=== PATIENT | female | born 1960 | race Caucasian/White ===

== ENCOUNTER 2025-09-05 13:34 | Emergency (ER) | payer MEDICARE, SELFPAY ==
--- OUTSIDE RECORDS SUMMARY | 2025-07-25 13:50 | XMS_ITS | Encounter Summary ---
Author Organization [facility] Address [address] [place] [address] Care Team Providers Care Salesperson [employer]obiles Name Role Phone Yuan Rios MD Unavailable [phone] Perfecto Edge MD Primary Care Provider Unavail able Reason for Visit * ReasonCommentsCopd Exacerbation Encounter Details DateTypeDepartmentCare Team (Latest Contact Info)Wmzuppclvsm34/11/2025 1:50 PM SHEET METAL SHOP HELPER - 07/25/2025 5:06 PM SEUNEmeroland Cortes [facility] [address] [place] [address] Kenton Jones MD [facility] [address] [place], [place] [id number] COPD exacerbation (H) (Primary Dx) Discharge Disposition: Home or Self Care Social History Tobacco UseTypesPacks/DayYears UsedDateSmoking Tobacco: Never Assessed CommentsUnknownSex and Gender InformationValueDate RecordedSex Assigned at Not on fileLegal RwkNhjeip20/08/2016 11:20 AM CSTGender IdentityNot on file Sexual OrientationNot on filedocumented as of this encounter Last Filed Vital Signs Vital SignReadingTime TakenCommentsBlood Kifyqdre292/3065407/25/2025 4:58 PM SHEET METAL SHOP HELPER Vpssf73137/11/2025 4:30 PM FXUNejcutkpvvw19.8 ??C (98.2 ??F)07/25/2025 4:58 PM CSTRespiratory Emol384609/24/2024 4:58 PM CSTOxygen Yrspdrywep59%07/25/2025 4:58 PM CSTInhaled Oxygen Concentration--Epbzmo56.2 kg (209 lb 14.1 oz)07/25/2025 2:05 PM CSTHeight--Body Mass Index39.66011/20/2015 11:28 AM CSTdocumented in this encounter Functional Status * Calculated C-SSRS Risk Score (Lifetime/Recent)AnswerDate of AssessmentAuthorNo Risk Psivmiftl63/11/2025 1:57 PM Aime Reyes RN * [place] Suicide Severity Rating Scale (Screener/Recent Self-Report)Question AnswerDate of AssessmentAuthor1. Wish to be (Past 1 Month)No07/25/2025 1:57 PM Aime Reyes RN2. Non-Specific Active Suicidal Thoughts (Past 1 Month)No07/25/2025 1:57 PM Aime Reyes RN6. Suicidal Behavior (Lifetime)No07/25/2025 1:57 PM Aime Reyes RN documented as of this encounter Discharge Instructions * Attachments The following attachments cannot be sent through Care Everywhere. * COPD: Exacerbation (Belarusian) documented in this encounter Medications at Time of Discharge MedicationSigDispense QuantityRefillsLast FilledStart DateEnd Date predniSONE (DELTASONE) 20 MG tablet Take 3 tabs by mouth daily x 3 days, then 2 tabs daily x 3 days, then 1 tab daily x 3 days, then 1/2 tab daily x 3 days. 20 tablet 07/25/2025documented as of this encounter ED Notes * Kenton Jones MD - 07/25/2025 2:19 PM CST Emergency Department Note History of Present Illness Chief Complaint Copd Exacerbation HPI Jcakeline Norris is a 65 year old female with history of COPD, hypertension, hypoxia, and SIRISHA who presents for evaluation of COPD exacerbation. The patient reports that last week she switched out her portable O2 machine. Today at [employer] it stopped working as she ran out of oxygen leading to acute onset of dyspnea, so she called EMS. She notes she was somewhat short of breath before the cannister went out. She endorses wheezing. She denies any chest pain, nausea, fever, cough, leg swelling, or use of blood thinners. She had a sputum culture done two weeks ago, and was found to have a bacterial infection in her lungs. She has been taking ciprofloxacin for the infection and is at the tail end of the prescription. She is on 2L of O2 and takes prednisone 5 mg daily. 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 She has tree-in-bud opacities and mild bronchiectasis. Plan is to start levofloxacin 750 mg daily x 5 days increase prednisone to 40 mg for 5 days then go back to 5 mg. Past Medical History Medical History and Problem List COPD Allergic rhinitis Hypertension Hypoxia SIRISHA Medications Albuterol Amlodipine Budesonide-formoterol Ciprofloxacin Fluticasone Guaifenesin Montelukast Prednisone Tiotropium bromide Surgical History Cholecystectomy Physical Exam Patient Vitals for the past 24 hrs: BP Temp Temp src Pulse Resp SpO2 Weight 07/25/25 1658 (!) 177/102 98.2 ??F (36.8 ??C) Oral -- 18 95 % -- 07/25/25 1649 -- -- -- -- -- 97 % -- 07/25/25 1630 (!) 156/84 -- -- 112 -- 96 % -- 07/25/25 1615 (!) 147/125 -- -- 114 -- 97 % -- 07/25/25 1500 (!) 177/85 -- -- (!) 125 -- 95 % -- 07/25/25 1445 (!) 151/88 -- -- 118 -- 97 % -- 07/25/25 1411 -- 97.5 ??F (36.4 ??C) Oral -- -- -- -- 07/25/25 1410 (!) 190/82 -- -- (!) 130 -- 95 % -- 07/25/25 1405 -- -- -- -- -- -- 95.2 kg (209 lb 14.1 oz) 07/25/25 1400 (!) 189/114 -- -- (!) 135 -- 95 % -- 07/25/25 1356 (!) 189/114 -- -- (!) 138 24 -- -- Physical Exam HEENT: Oropharynx is moist Eyes: Conjunctiva normal Neck: Supple, no meningismus. CV: Tachycardic, regular rhythm. No murmurs, rubs or gallops. No unilateral leg swelling. 2+ radial pulses bilateral. No lower extremity edema. PULM: Mild diffuse expiratory wheezing. No respiratory distress although tachypneic. Speaks in full sentences. No rales or rhonci. No stridor. ABD: Soft, non-tender, non-distended. No rebound, guarding or rigidity. MSK: No gross deformity to all four extremities. LYMPH: No cervical lymphadenopathy. NEURO: Alert Speech is clear Good muscle tone Skin: Warm, dry and intact. Psych: Mood is good and affect is appropriate. Diagnostics Lab Results Labs Ordered and Resulted from Time of ED Arrival to Time of ED Departure BASIC METABOLIC PANEL (LIMITED OCCURRENCES) - Abnormal Result Value Sodium 138 Potassium 4.5 Chloride 102 Carbon Dioxide (CO2) 25 Anion Gap 11 Urea Nitrogen 13.2 Creatinine 0.76 GFR Estimate 85 Calcium 9.4 Glucose 149 (*) BLOOD GAS VENOUS - Abnormal pH Venous 7.35 pCO2 Venous 52 (*) pO2 Venous 65 (*) Bicarbonate Venous 29 (*) Base Excess/Deficit Venous 1.9 FIO2 2 Oxyhemoglobin Venous 92 (*) O2 Sat, Venous 93.0 (*) CBC WITH PLATELETS AND DIFFERENTIAL - Abnormal WBC Count 11.49 (*) RBC Count 5.13 Hemoglobin 14.9 Hematocrit 46.7 MCV 91.0 MCH 29.0 MCHC 31.9 RDW 15.3 (*) Platelet Count 308 % Neutrophils 90.8 % Lymphocytes 3.3 % Monocytes 4.6 % Eosinophils 0.0 % Basophils 0.3 % Immature Granulocytes 1.0 NRBCs per 100 WBC 0.0 Absolute Neutrophils 10.43 (*) Absolute Lymphocytes 0.38 (*) Absolute Monocytes 0.53 Absolute Eosinophils <0.03 Absolute Basophils 0.03 Absolute Immature Granulocytes 0.12 Absolute NRBCs <0.03 ISTAT GASES LACTATE VENOUS POCT - Abnormal Lactic Acid POCT 1.9 Bicarbonate Venous POCT 29 (*) O2 Sat, Venous POCT 77 (*) pCO2 Venous POCT 49 pH Venous POCT 7.38 pO2 Venous POCT 43 INFLUENZA A/B, RSV AND SARS-COV2 PCR - Normal Influenza A PCR Negative Influenza B PCR Negative RSV PCR Negative SARS CoV2 PCR Negative Imaging Chest XR, PA & LAT Final Result IMPRESSION: Cardiac silhouette is at the upper limit of normal in size given portable technique. Upper lobe predominant oligemia, suggestive of emphysema. Possible small bilateral pleural effusions with associated compressive atelectasis. No definite airspace consolidation or pneumothorax. No acute bony abnormality. EKG ECG taken at 1402, ECG read at 1405 by Kenton Jones MD Sinus tachycardia Nonspecific ST abnormality No prior ECG Rate [address] interval 112 ms. QRS duration 88 ms. QT/QTc 316/468 ms. P-R-T axes 68 59 51. Independent Interpretation CXR: No pneumothorax or infiltrate. ED Course Medications Administered Medications methylPREDNISolone Na Suc (solu-MEDROL) injection 125 mg (125 mg Intravenous $Given 07/25/25 1427) ipratropium - albuterol 0.5 mg/2.5 mg (3mg)/3 mL (DUONEB) neb solution 6 mL (6 mLs Nebulization $Given 07/25/25 1427) Procedures Procedures Discussion of Management None ED Course ED Course as of 07/26/25 0823 ThuJul 25, 2025 141 I obtained history and examined the patient as noted above. Upon repeat examination respiratory rate 16 and trace minimal wheezing Additional Documentation None Medical Decision Making / Diagnosis [facility] Diagnoses: None MIPS None MDM Jackeline Norris is a 65 year old female with severe COPD on 2 L home O2 presents with shortnessof breath that occurred after running out of her home oxygen tank while at [employer]. She has evidence of acute bronchospasm that was responsive to DuoNebs and Solu-Medrol. No evidence of associated pneumonia. Basic laboratory studies are unrevealing. On reexamination wheezing is much improved although still present. She is not hypoxic on her baseline 2 L. I recommended admission for COPD exacerbation. Patient is declining and would like to discharge home. She is here with her daughter who is also comfortable with patient being discharged home. She will be placed on a prednisone taper backto her baseline dose of 5 mg. She is finishing a course of antibiotics that was given to her by herprimary clinical informatics educator thus no additional antibiotics ordered. Close follow-up with PCP and return to ED for symptoms. Disposition The patient was discharged. Diagnosis ICD-10-CM 1. COPD exacerbation (H) J44.1 Discharge Medications Discharge Medication List as of 07/25/2025 4:56 PM START taking these medications Details predniSONE (DELTASONE) 20 MG tablet Take 3 tabs by mouth daily x 3 days, then 2 tabs daily x 3 days, then 1 tab daily x 3 days, then 1/2 tab daily x 3 days., Disp-20 tablet, R-0, E-Prescribe Scribe Disclosure: IAlfredo, am serving as a scribe at 2:19 PM on 07/25/2025 to document services personally performed by Kenton Jones MD based on my observations and the provider's statements to me. Kenton Jones MD 07/26/25 0825 T METAL SHOP HELPER * Aime Reyes RN - 07/25/2025 2:08 PM CST Pt brought in by ambulance from [facility] with a COPD exacerbation. Pt's oxygen machine stopped working and pt started having trouble breathing subsequently. Pt was tripoding and using pursed lip breathing when EMS arrived. EMS gave 1 duo neb. Pt was on non rebreather mask at 10L and then decreased to 2L when her oxygen saturation increased. Pt currently on 1.5LNC. Pt was hypertensive when EMSarrived with systolic in the 200's. BP has improved since arriving to the ED. Pt is currently on keflex for a lung infection. ABC intact. Family at bedside. T METAL SHOP HELPER T METAL SHOP HELPER * Kevin Colindres RN - 07/25/2025 1:50 PM CST Bed: ED03 Expected date: Expected time: Means of arrival: Comments: BV6 T METAL SHOP HELPER documented in this encounter Plan of Treatment Not on file documented as of this encounter Procedures Procedure NamePriorityDate/TimeAssociated DiagnosisCommentsXR CHEST 2 VIEWSSTAT 07/25/2025 3:01 PM SHEET METAL SHOP HELPER ISTAT GASES LACTATE VENOUS DPADTCNS63/11/2025 2:21 PM SHEET METAL SHOP HELPER INFLUENZA A/B, RSV AND SARS-COV2 SPPARBZ61/11/2025 2:04 PM SHEET METAL SHOP HELPER EKG 12-LEAD, TRACING ASLVTNPO92/11/2025 2:02 PM SHEET METAL SHOP HELPER EXTRA HEPARINIZED XLOSGDMJGWN27/11/2025 1:59 PM SHEET METAL SHOP HELPER EXTRA MRJZXYFB16/11/2025 1:59 PM SHEET METAL SHOP HELPER EXTRA BLOOD CULTURE AWBMAUNOBH34/11/2025 1:59 PM SHEET METAL SHOP HELPER EXTRA PURPLE TOP PEJBVKVW80/11/2025 1:59 PM SHEET METAL SHOP HELPER EXTRA GREEN TOP (LITHIUM HEPARIN) NETXXOBL84/11/2025 1:59 PM SHEET METAL SHOP HELPER EXTRA RED TOP PQWHAARP26/11/2025 1:59 PM SHEET METAL SHOP HELPER EXTRA BLUE TOP AXDQEAYP34/11/2025 1:59 PM SHEET METAL SHOP HELPER CBC WITH PLATELETS AND HZMRRQLTCOUJSVTL94/11/2025 1:59 PM SHEET METAL SHOP HELPER CBC WITH PLATELETS AND DIFFERENTIAL (LIMITED OCCURRENCES)STAT109/24/2024 1:59 PM SHEET METAL SHOP HELPER BASIC METABOLIC PANEL (LIMITED OCCURRENCES)STAT109/24/2024 1:59 PM SHEET METAL SHOP HELPER BLOOD GAS GEITDHIEBB45/11/2025 1:59 PM SHEET METAL SHOP HELPER documented in this encounter Results * Chest XR, PA & LAT (07/25/2025 3:01 PM SHEET METAL SHOP HELPER)Anatomical RegionLateralityModality ChestDigital RadiographySpecimen (Source)Anatomical Location / Laterality Collection Method / VolumeCollection TimeReceived Time07/25/2025 3:01 PM SHEET METAL SHOP HELPER Impressions 07/25/2025 3:04 PM SHEET METAL SHOP HELPER IMPRESSION: Cardiac silhouette is at the upper limit of normal in size given portable technique. Upper lobe predominant oligemia, suggestive of emphysema. Possible small bilateral pleural effusions with associated compressive atelectasis. No definite airspace consolidation or pneumothorax. No acute bony abnormality. Narrative 07/25/2025 3:04 PM SHEET METAL SHOP HELPER EXAM: XR CHEST 2 VIEWS LOCATION: [facility] DATE: 07/25/2025 INDICATION: Dyspnea, hx of COPD COMPARISON: None. Procedure Note Oumar Nicholas MD - 07/25/2025 EXAM: XR CHEST 2 VIEWS LOCATION: [facility] DATE: 07/25/2025 INDICATION: Dyspnea, hx of COPD COMPARISON: None. IMPRESSION: Cardiac silhouette is at the upper limit of normal in sizegiven portable technique. Upper lobe predominant oligemia, suggestive ofemphysema. Possible small bilateral pleural effusions with associatedcompressive atelectasis. No definite airspace consolidation or pneumothorax. No acute bony abnormality. Authorizing ProviderResult TypeResult StatusJeremines Jones MDIMTony DIAGNOSTIC IMAGING ORDERABLESFinal Result * (ABNORMAL) iStat Gases (lactate) venous, POCT (07/25/2025 2:21 PM SHEET METAL SHOP HELPER) ComponentValueRef RangeTest MethodAnalysis TimePerformed AtPathologist SignatureLactic Acid POCT1.90.7 - 2.0 mmol/L109/24/2024 2:23 PM [facility] LABORATORY POCBicarbonate Venous POCT29(H)21 - 28 mmol/L109/24/2024 2:23 PM SHEET METAL SHOP HELPER LABORATORY POCO2 Sat, Venous POCT77(H)70 - 75 %07/25/2025 2:23 PM [facility] LAB[facility] POCpCO2 Venous NZJH5973 - 50 mm Hg07/25/2025 2:23 PM [facility] LABORATORY POCpH Venous POCT7.387.32 - 7.4311 2:[address] [facility] POCpO2 Venous BZIW2850 - 47 mm Hg07/25/2025 2:[address] [facility] POC Specimen (Source)Anatomical Location / LateralityCollection Method / Volume Collection TimeReceived TimeBlood, venousBLOOD SPECIMEN / Wsibmmn4907/25/2025 2:21 PM CST07/25/2025 2:23 PM SHEET METAL SHOP HELPER Narrative Authorizing ProviderResult TypeResult StatusJeremines PEREZ POCTFinal ResultPerforming OrganizationAddressCity/State/ZIP CodePhone Number LABORATORY POC [facility] [address] [facility] (1st floor, no room number) [place] [address], [facility] * Influenza A/B, RSV and SARS-CoV2 PCR (COVID-19) Nose (07/25/2025 2:04 PM SHEET METAL SHOP HELPER) ComponentValueRef RangeTest MethodAnalysis TimePerformed AtPathologist SignatureInfluenza A CKVJvrmkomqCorrlcjk59/11/2025 2:50 PM [facility]ST LABORATORY Influenza B CXJVwskavcyMbolqysg50/11/2025 2:[address] [facility] LABORATORYRSV PCR CfuuhfjxWpvkpcmx46/11/2025 2:[address] [facility] LABORATORYSARS CoV2 PCRNegative Uaokcgzk79/11/2025 2:[address] [facility] LABORATORYComment:NEGATIVE: SARS-CoV-2 (COVID-19) RNA not detected, presumed negative.Specimen (Source)Anatomical Location / LateralityCollection Method / VolumeCollection TimeReceived Time SwabNASAL STRUCTURE / UnknownNon-blood Collection / Lygvsoi6307/25/2025 2:04 PM CST07/25/2025 2:08 PM SHEET METAL SHOP HELPER Narrative LABORATORY - 07/25/2025 2:50 PM SHEET METAL SHOP HELPER Testing was performed using the Xpert Xpress CoV2/Flu/RSV Assay on the [employer] GeneXpert Instrument. This test should be ordered for the detection of SARS- CoV2, influenza, and RSV viruses in individuals with signs and symptoms of respiratory tract infection. This test is for in vitro diagnostic use under the [place] FDA for laboratories certified under CLIA to perform high or moderate complexity testing. This test has been [place] FDA cleared. A negative result does not rule out the presence of PCR inhibitors in the specimen or target RNA in concentration below the limit of detection for the assay. If only one viral target is positive but coinfection with multiple targets is suspected, the sample should be re-tested with another FDA cleared, approved, or authorized test, if coninfection would change clinical management. This test was validated by the [facility]. These laboratories are certified under the Clinical Laboratory Improvement Amendments of 1988 (CLIA-88) as qualified to perfom high complexity laboratory testing. Authorizing ProviderResult TypeResult Mimi DUNCAN - MICRO GENERAL ORDERABLESFinal ResultPerforming OrganizationAddressCity/State/ZIP Code Phone Number [facility] [address] Lab (1st floor, no room number) [place] [address], [facility] * EKG 12-lead, tracing only (07/25/2025 2:02 PM SHEET METAL SHOP HELPER)ComponentValueRef RangeTest MethodAnalysis TimePerformed AtPathologist SignatureSystolic Blood Pressure mmHgRADIOLOGY RESULTSDiastolic Blood PressuremmHgRADIOLOGY RESULTSVentricular Gsiz464VYVWRQRZRAWT RESULTSAtrial Pava789ILJGYIROBIPN RESULTSPR Mqqlyrud026vk RADIOLOGY RESULTSQRS Dnenfspm67cjLHRZKJQNW PBBBGOXKI662mnWRDEBFICI RESULTSQTc 468msRADIOLOGY RESULTSP Edvk66xuuoxcpAHXWYOXYC RESULTSR TRPV02coyvkywOGNAPNGEH RESULTST Hgqh49ctxawugNRSLEAVJE RESULTSInterpretation ECGSinus tachycardia Nonspecific ST abnormality Abnormal ECG No previous ECGs available Unconfirmed report - interpretation of this ECG is computer generated - see medical record for final interpretation Confirmed by - EMERGENCY ROOM, PHYSICIAN ([id number]), editor & co founder PAM KIRBY ([id number]) on 07/26/2025 6:40:34 AM RADIOLOGY RESULTSSpecimen (Source)Anatomical Location / LateralityCollection Method / VolumeCollection TimeReceived Time07/25/2025 2:02 PM CST07/26/2025 6:40 AM SHEET METAL SHOP HELPER Narrative Authorizing ProviderResult TypeResult Mimi HOBBSG ORDERABLES Edited Result - FinalPerforming OrganizationAddressCity/State/ZIP CodePhone Number RADIOLOGY RESULTS * (ABNORMAL) CBC with platelets and differential (07/25/2025 1:59 PM SHEET METAL SHOP HELPER) ComponentValueRef RangeTest MethodAnalysis TimePerformed AtPathologist SignatureWBC Count11.49(H)4.00 - 11.00 10e3/uL07/25/2025 2:[address] [facility] LABORATORYRBC Count5.133.80 - 5.20 10e6/uL07/25/2025 2:[address] [facility] Lehnrmdtxh69.911.7 - 15.7 g/dL07/25/2025 2:[address] [facility] LABORATORYHematocrit 46.735.0 - 47.0 %07/25/2025 2:[address] [facility] APBWKWHAPZDUD75.078.0 - 100.0 fL 07/25/2025 2:[address] [facility] OMPYUSJJDDJVK70.026.5 - 33.0 pg07/25/2025 2:24 PM [facility] XNREZRHQOHDIUG00.931.5 - 36.5 g/dL07/25/2025 2:[address] [facility] LABORATORYRDW 15.3(H)10.0 - 15.0 %07/25/2025 2:[address] [facility] LABORATORYPlatelet Jtfwl891153 - 450 e3/uL07/25/2025 2:[address] [facility]% Fdcwuovjdtp01.8%07/25/2025 2:[address] [facility]% Lymphocytes3.3%07/25/2025 2:[address] [facility]% Monocytes4.6%07/25/2025 2:[address] [facility]% Eosinophils0.0%07/25/2025 2:[address] [facility]% Basophils0.3%07/25/2025 2:[address] [facility]% Immature Granulocytes1.0%07/25/2025 2:[address] [facility] LABORATORYNRBCs per 100 WBC 0.0<1.0 /6721407/25/2025 2:[address] [facility] LABORATORYAbsolute Rybnrqlzppq69.43(H) 1.60 - 8.30 10e3/uL07/25/2025 2:[address] [facility] LABORATORYAbsolute Lymphocytes0.38 (L)0.80 - 5.30 10e3/uL07/25/2025 2:[address] [facility] LABORATORYAbsolute Monocytes 0.530.00 - 1.30 10e3/uL07/25/2025 2:[address] [facility] LABORATORYAbsolute Eosinophils <0.030.00 - 0.70 10e3/uL07/25/2025 2:24 PM [facility] LABORATORYAbsolute Basophils 0.030.00 - 0.20 10e3/uL07/25/2025 2:[address] [facility] LABORATORYAbsolute Immature Granulocytes0.12<=0.40 10e3/uL07/25/2025 2:[address] [facility] LABORATORYAbsolute NRBCs<0.0310e3/uL07/25/2025 2:[address] [facility] LABORATORYSpecimen (Source) Anatomical Location / LateralityCollection Method / VolumeCollection Time Received TimeBloodBLOOD SPECIMEN / UnknownVenipuncture / Bahjxti5707/25/2025 1:59 PM CST07/25/2025 2:11 PM SHEET [employer] HELPER Narrative Authorizing ProviderResult TypeResult StatusJeremines Jones MDLAB - BLOOD ORDERABLESFinal ResultPerforming OrganizationAddressCity/State/ZIP CodePhone Number [facility] [address] Lab (1st floor, no room number) [place] [address] * (ABNORMAL) Blood gas venous (07/25/2025 1:59 PM SHEET METAL SHOP HELPER)ComponentValueRef Range Test MethodAnalysis TimePerformed AtPathologist SignaturepH Venous7.357.32 - 7.43109/24/2024 2:[address] [facility] LABORATORYpCO2 Tbfdmz08(H)40 - 50 mm Hg07/25/2025 2:[address] [facility] LABORATORYpO2 Tromop22(H)25 - 47 mm Hg07/25/2025 2:[address] [facility] LABORATORYBicarbonate Ujwove58(H)21 - 28 mmol/L109/24/2024 2:[address] [facility] LABORATORYBase Excess/Deficit Venous1.9-3.0 - 3.0 mmol/L109/24/2024 2:27 PM SHE[employer] HELPER RH GIBFQNJIUBXQN95 [place] 07/25/2025 2:[address] [facility] LABORATORYOxyhemoglobin Njdwuu23(H)70 - 75 %07/25/2025 2:[address] [facility] LABORATORYO2 Sat, Rfqyev88.0(H)70.0 - 75.0 %07/25/2025 2:27 PM [facility] LABORATORYSpecimen (Source)Anatomical Location / LateralityCollection Method / VolumeCollection TimeReceived TimeBlood, venousBLOOD SPECIMEN / Unknown Venipuncture / Rqaqssd0207/25/2025 1:59 PM CST07/25/2025 2:11 PM SHEET [employer] HELPER Narrative LABORATORY - 07/25/2025 2:27 PM SHEET [employer]AL SH[employer] HELPER In healthy individuals, oxyhemoglobin (O2Hb) and oxygen saturation (SO2) are approximately equal. In the presence of dyshemoglobins, oxyhemoglobin can be considerably lower than oxygen saturation. Authorizing ProviderResult TypeResult StatusJeremiaroverto Jones MDLAB - BLOOD ORDERABLESFinal ResultPerforming OrganizationAddressCity/State/ZIP CodePhone Number LABORATORY [facility] [address] Lab (1st floor, no room number) [place] [address], [facility] * (ABNORMAL) Basic Metabolic Panel (Limited Occurrences) (07/25/2025 1:59 PM SHEET MET[employer] SHOP HELPER)ComponentValueRef RangeTest MethodAnalysis TimePerformed AtPathologist WotlrfwimCbsimq930124 - 145 mmol/L109/24/2024 2:[address] [facility] LABORATORYPotassium 4.53.4 - 5.3 mmol/L109/24/2024 2:[address] [facility] QKNBQQZFIRLnzasxnm69105 - 107 mmol/L109/24/2024 2:[address] [facility] LABORATORYCarbon Dioxide (CO2)2522 - 29 mmol/L 07/25/2025 2:[address] [facility] LABORATORYAnion Fzz559 - 15 mmol/L109/24/2024 2:[address] [facility] LABORATORYUrea Gcaifpvo54.28.0 - 23.0 mg/dL07/25/2025 2:[address] [facility] LABORATORYCreatinine0.760.51 - 0.95 mg/dL07/25/2025 2:[address] [facility] GFR Ycxpjhcl18>60 mL/min/1.36f36107/25/2025 2:[address] [facility] LABORATORYComment:eGFR calculated using 2020 CKD-EPI equation.Calcium9.48.8 - 10.4 mg/dL07/25/2025 2:[address] [facility] KIFGODVTSWMvotseg831(H)70 - 99 mg/dL07/25/2025 2:[address] [facility] LABORATORYSpecimen (Source)Anatomical Location / LateralityCollection Method / VolumeCollection TimeReceived TimeBloodBLOOD SPECIMEN / UnknownVenipuncture / Ljqnnjz1807/25/2025 1:59 PM CST07/25/2025 2:11 PM SHE[employer] HELPER Narrative Authorizing ProviderResult TypeResult StatusKenton Jones MDLAB - BLOOD ORDERABLESFinal ResultPerforming OrganizationAddressCity/State/ZIP CodePhone Number [facility] [address] Lab (1st floor, no room number) [place] [address] * Extra Heparinized Syringe (07/25/2025 1:59 PM SHEET [employer] HELPER)ComponentValueRef RangeTest MethodAnalysis TimePerformed AtPathologist SignatureHold TotmlwwwKNH83/11/2025 3:18 PM [facility] LABORATORYSpecimen (Source)Anatomical Location / Laterality Collection Method / VolumeCollection TimeReceived TimeBlood, venousBLOOD SPECIMEN / UnknownVenipuncture / Hdefqwu7007/25/2025 1:59 PM CST07/25/2025 2:11 PM [employer] Narrative Authorizing ProviderResult TypeResult StatusKenton DUNCAN - BLOOD ORDERABLESFinal ResultPerforming OrganizationAddressCity/State/ZIP CodePhone Number [facility] [address] Lab (1st floor, no room number) [place] [address] * Extra Purple Top Tube (07/25/2025 1:59 PM [employer])ComponentValueRef RangeTest MethodAnalysis TimePerformed AtPathologist SignatureHold WslvibobQAO21/11/2025 3:[address] [facility] LABORATORYSpecimen (Source)Anatomical Location / Laterality Collection Method / VolumeCollection TimeReceived TimeBloodBLOOD SPECIMEN / UnknownVenipuncture / Cmqmcpj0007/25/2025 1:59 PM CST07/25/2025 2:11 PM [employer] Narrative Authorizing ProviderResult TypeResult StatusKenton Jones MDLAB - BLOOD ORDERABLESFinal ResultPerforming OrganizationAddressCity/State/ZIP CodePhone Number [facility] [address] Lab (1st floor, no room number) [place] [address] * Extra Green Top ([place] Heparin) Tube (07/25/2025 1:59 PM [employer])ComponentValue Ref RangeTest MethodAnalysis TimePerformed AtPathologist SignatureHold QgruxrchFDS15/11/2025 3:18 PM CST LABORATORYSpecimen (Source)Anatomical Location / LateralityCollection Method / VolumeCollection TimeReceived Time BloodBLOOD SPECIMEN / UnknownVenipuncture / Fcflafa6107/25/2025 1:59 PM [employer] 07/25/2025 2:11 PM [employer] Narrative Authorizing ProviderResult TypeResult StatusKenton DUNCAN - BLOOD ORDERABLESFinal ResultPerforming OrganizationAddressCity/State/ZIP CodePhone Number [facility] [address] Lab (1st floor, no room number) [place] [address], [facility] * Extra Red Top Tube (07/25/2025 1:59 PM [employer])ComponentValueRef RangeTest Method Analysis TimePerformed AtPathologist SignatureHold GnqiinmlQDC14/11/2025 3:[address] [facility] LABORATORYSpecimen (Source)Anatomical Location / LateralityCollection Method / VolumeCollection TimeReceived TimeBloodBLOOD SPECIMEN / Unknown Venipuncture / Utdielg0807/25/2025 1:59 PM CST07/25/2025 2:11 PM [employer] Narrative Authorizing ProviderResult TypeResult StatusKenton DUNCAN - BLOOD ORDERABLESFinal ResultPerforming OrganizationAddressCity/State/ZIP CodePhone Number [facility] [address] Lab (1st floor, no room number) [place] [address], [facility] * Extra Blue Top Tube (07/25/2025 1:59 PM [employer])ComponentValueRef RangeTest Method Analysis TimePerformed AtPathologist SignatureHold VtguqfpnGOU34/11/2025 3:[address] [facility] LABORATORYSpecimen (Source)Anatomical Location / LateralityCollection Method / VolumeCollection TimeReceived TimeBloodBLOOD SPECIMEN / Unknown Venipuncture / Arpvyho9307/25/2025 1:59 PM CST07/25/2025 2:11 PM [employer] Narrative Authorizing ProviderResult TypeResult StatusKenton DUNCAN - BLOOD ORDERABLESFinal ResultPerforming OrganizationAddressCity/State/ZIP CodePhone Number [facility] [address] Lab (1st floor, no room number) [place] [address], [facility] * Extra Blood Culture Bottle (07/25/2025 1:59 PM [employer])ComponentValueRef RangeTest MethodAnalysis TimePerformed AtPathologist SignatureHold QqpsdvirVBE53/11/2025 3:18 PM CST LABORATORYSpecimen (Source)Anatomical Location / Laterality Collection Method / VolumeCollection TimeReceived TimePeripheral blood (BC) STRUCTURE OF LEFT UPPER LIMB / UnknownVenipuncture / Otwjfhw5107/25/2025 1:59 PM CST07/25/2025 2:11 PM [employer] Narrative Authorizing ProviderResult TypeResult StatusJejil Jones MDLAB - BLOOD ORDERABLESFinal ResultPerforming OrganizationAddressCity/State/ZIP CodePhone Number [facility] [address] Lab (1st floor, no room number) [place] [address] documented in this encounter Visit Diagnoses Diagnosis COPD exacerbation (H)- Primary Obstructive chronic bronchitis with exacerbation documented in this encounter Administered Medications Medication OrderMAR ActionAction DateDoseRateSite ipratropium - albuterol 0.5 mg/2.5 mg (3mg)/3 mL (DUONEB) neb solution 6 mL 6 mL, Nebulization, ONCE, On Thu07/25/25 at 1420, For 1 dose $Given07/25/2025 2:27 PM CST6 mLs methylPREDNISolone Na Suc (solu-MEDROL) injection 125 mg 125 mg, Intravenous, Administer over 2 Minutes, ONCE, On Thu07/25/25 at 1420, For 1 dose $Given07/25/2025 2:27 PM ONG239 mgdocumented in this encounter Active and Recently Administered Medications Times are shown in [employer].Medication Order/ ipratropium - albuterol 0.5 mg/2.5 mg (3mg)/3 mL (DUONEB) neb solution 6 mL (COMPLETED) 6 mL, Nebulization, ONCE, On Thu07/25/25 at 1420, For 1 dose * 1427 ($Given - Provider: Aime Reyes RN) methylPREDNISolone Na Suc (solu-MEDROL) injection 125 mg (COMPLETED) 125 mg, Intravenous, Administer over 2 Minutes, ONCE, On Thu07/25/25 at 1420, For 1 dose * 1427 ($Given - Provider: Aime Reyes RN) documented in this encounter Additional Health Concerns InfectionOnset DateLast IndicatedResolved TimeRule Out COVID-19109/24/2024 2:50 PM CSTdocumented as of this encounter Care Teams Team MemberRelationshipSpecialtyStart DateEnd Date Perfecto Edge MD PCP - GeneralFamily Practice01/14/19 Yuan Rios MD Referring PhysicianPulmonary Disease11/20/15documented as of this encounter
[2025-09-05 13:38] VITALS: BP 163/88; PULSE 110; RESP 24; TEMP 36.6; O2SAT 94; BMI 38.7
[2025-09-05 13:50] VITALS: PULSE 120; RESP 28; O2SAT 88
[2025-09-05 13:55] VITALS: O2SAT 92
--- NOTE | 2025-09-05 14:41 | ED.SOB ---
HPI - SOB/Dyspnea General Chief Complaint: Shortness of Breath/Dyspnea Stated Complaint: Trouble breathing, CO2 98. Time Seen by Provider: 09/05/25 14:32 History of Present Illness HPI Narrative: This 65-year-old female comes in reporting concern about her carbon dioxide levels. She has COPD and has a history of smoking but currently does not smoke. She is on 2 L oxygen by nasal cannula at home. She states that she measured her oximetry and it was 98% and was told by her doctor that she should be checked if she is retaining carbon dioxide. She did go to a different emergency department 2 days ago and had a chest x-ray which was negative for infiltrate. She did nevertheless receive a prescription for doxycycline and also is taking 40 mg of prednisone daily. This is her 2nd day of that dosing. She states that she is on 5 mg daily chronically. Upon the my initial assessment the patient had an oximetry at 92% on room air. She states that she feels like her breathing is normal for her at this time. Related Data Home Medications ?Medication ?Instructions ?Recorded ?Confirmed amlodipine .ROUTE 09/05/25 budesonide-formoterol inhalation 09/05/25 doxycycline hyclate .ROUTE 09/05/25 montelukast .ROUTE 09/05/25 prednisone .ROUTE 09/05/25 tiotropium bromide inhalation 09/05/25 Allergies Allergy/AdvReac Type Severity Reaction Status Date / Time No Known Drug Allergies Allergy Verified 09/05/25 13:42 Review of Systems Status of ROS: Reports: 10 or more systems reviewed and unremarkable except as noted in History and below Narrative: Constitutional: No fevers, no weight gain or loss. Eyes: No discharge. No vision changes. HENT: No congestion, no sore throat, no ear pain. Cardiovascular: No chest pain, no palpitations. Respiratory: COPD. On oxygen at home at 2 L by nasal cannula. Gastrointestinal: No abdominal pain, no vomiting, no diarrhea. Genitourinary: No dysuria, no hematuria. Musculoskeletal: Normal range of motion. Skin: No rashes, no pruritis. Neurological: No dizziness, weakness, sensory change, speech change. Endo/Heme/Allergies: No bruising or bleeding. No polydipsia. Pysch: no suicidality, no anxiety, no insomnia. All other systems reviewed and are negative. Exam Narrative: Exam Narrative: Constitutional: Well-developed, well-nourished, no acute distress. HEENT: Normocephalic, atraumatic. Neck: Normal range of motion. Nontender. Supple. Heart: Regular. No murmurs. Normal rate. Intact distal pulses. Lungs: Decreased air movement and some use of accessory muscles for breathing. Abdomen: Normal bowel sounds. Nontender. No rebound tenderness. Genitalia: Deferred. Back: No midline tenderness. Normal range of motion. Extremities: Normal range of motion. No injury. Skin: Intact. No rash. Warm. No erythema or pallor. Neurologic: No altered sensation. No weakness. Alert and oriented. Psychiatric: No suicidality. No anxiety or depression. No insomnia. Nursing notes and vitals signs are reviewed. Const: Vital Signs, click to edit/add: Vital Signs - 24 hr 09/05/25 13:38 09/05/25 13:50 09/05/25 13:55 Temperature 97.8 F Pulse Rate [Pulse Oximeter] 110 H 120 H Respiratory Rate 24 28 H Blood Pressure [Ri ght Upper Arm] 163/88 H Pulse Oximetry 94 88 92 Oxygen Delivery Me thod Nasal Cannula Nasal Cannula Oxygen Flow Rate 2 2 09/05/25 13:55 Temperature Pulse Rate [Pulse Oximeter] Respiratory Rate Blood Pressure [Ri ght Upper Arm] Pulse Oximetry 92 Oxygen Delivery Me thod Nasal Cannula Oxygen Flow Rate 2 Course Vital Signs Vital signs: Initial Vital Signs Temperature 97.8 F 09/05/25 13:38 Temperature Source Temporal Artery Scan 09/05/25 13:38 Pulse Rate 110 H 09/05/25 13:38 Respiratory Rate 24 09/05/25 13:38 Blood Pressure 163/88 H 09/05/25 13:38 Blood Pressure Mean 113 H 09/05/25 13:38 Blood Pressure Position Sitting 09/05/25 13:38 Pulse Oximetry 94 09/05/25 13:38 Oxygen Delivery Method Nasal Cannula 09/05/25 13:38 Oxygen Flow Rate 2 09/05/25 13:38 Vital Signs Temperature 97.8 F 09/05/25 13:38 Pulse Rate 110 H 09/05/25 13:38 Respiratory Rate 24 09/05/25 13:38 Blood Pressure 163/88 H 09/05/25 13:38 Pulse Oximetry 94 09/05/25 13:38 Oxygen Delivery Method Nasal Cannula 09/05/25 13:38 Oxygen Flow Rate 2 09/05/25 13:38 Temperature 97.8 F 09/05/25 13:38 Pulse Rate 120 H 09/05/25 13:50 Respiratory Rate 28 H 09/05/25 13:50 Blood Pressure 163/88 H 09/05/25 13:38 Pulse Oximetry 92 09/05/25 13:55 Oxygen Delivery Method Nasal Cannula 09/05/25 13:55 Oxygen Flow Rate 2 09/05/25 13:55 Medications Administered Medications: Discontinued Medications Generic Name Dose Route Start Last Admin Trade Name Freq PRN Reason Stop Dose Admin Albuterol/Ipratropium 1 neb 09/05/25 14:40 09/05/25 15:30 Iprat-Albut 0.5-2.5 Mg/3 Ml Neb IH 09/05/25 14:41 1 neb ONCE ONE Administration MDM - SOB/Dyspnea MDM Narrative Medical decision making narrative: This patient comes in with concern that she might be retaining carbon dioxide. She does have a long history of COPD and is on oxygen at home. She is also currently taking increased dose of prednisone at 40 mg daily and is also on doxycycline. She arrives here with oximetry at 92% on room air. She is rather tight in her breathing. She did receive a DuoNeb treatment and had some initial wheezing afterwards but then the wheezing dissipated and she seemed to be breathing better. Arterial blood glasses are obtained and show normal level for carbon dioxide. The respiratory therapist compared these values with previous testing done elsewhere and results are similar. The patient is okay to be discharged home to continue these current plans. Lab Data Labs: Lab Results 09/05/25 Range/Units 15:20 ABG pH 7.45 (7.35-7.45) ABG pCO2 42 (35-45) mmHG ABG pO2 57.8 L (80-105) mmHG ABG HCO3 29 H (21-28) mmol/L ABG Total CO2 26 (21-30) mmol/l ABG O2 Saturation 95 (92-100) % ABG Base Excess 4.6 H (-3.0-3.0) mmol/L Discharge Plan Discharge Clinical Impression: COPD (chronic obstructive pulmonary disease) Patient Disposition: Home, Self-Care Condition: Stable Additional Instructions: Continue current plans. Follow up with MD for ongoing management or return if worsening symptoms occur. Prescriptions: No Action doxycycline hyclate .ROUTE prednisone .ROUTE budesonide-formoterol [Symbicort] inhalation tiotropium bromide [Spiriva with HandiHaler] inhalation amlodipine .ROUTE montelukast .ROUTE Stand Alone Forms: [facility] Info Instructions Procedures ABG Interpretation ABG Results: 09/05/25 15:20 ABG pH 7.45 ABG pCO2 42 ABG pO2 57.8 L ABG HCO3 29 H ABG Total CO2 26 ABG O2 Saturation 95 ABG Base Excess 4.6 H
[2025-09-05 15:23] LABS: ABG PCO2 42 mmHG (35-45); HCO3 ABG 29 mmol/L (21-28); Oxygen Saturation ABG 95 % (92-100); PO2 ABG 57.8 mmHG (80-105); TCO2 ABG 26 mmol/l (21-30)
[2025-09-05] MEDS: IPRAT-ALBUT 0.5-2.5 MG/3 ML NEB 1 NEB IH (15:30)
[2025-09-05 15:37] VITALS: RESP 20; O2SAT 94
--- OUTSIDE RECORDS SUMMARY | 2025-09-05 16:19 | XMS_ITS | Encounter Summary ---
Author Organization [place] Address [address] [place] [address] Care Team Providers Care Client Reporting Associate Name Role Phone Yuan Rios MD Unavailable Perfecto Edge MD Primary Care Provider Unavail able Encounter Details DateTypeDepartmentCare Team (Latest Contact Info)Fbvdrbbduhj27/11/2025Travel Social History Tobacco UseTypesPacks/DayYears UsedDateSmoking Tobacco: Never Assessed CommentsUnknownSex and Gender InformationValueDate RecordedSex Assigned at Not on fileLegal CjcFdfmje46/08/2016 11:20 AM CSTGender IdentityNot on file Sexual OrientationNot on filedocumented as of this encounter Plan of Treatment Not on file documented as of this encounter Visit Diagnoses Not on filedocumented in this encounter Additional Health Concerns InfectionOnset DateLast IndicatedResolved TimeRule Out COVID-19109/24/2024 2:50 PM CSTdocumented as of this encounter Care Teams Team MemberRelationshipSpecialtyStart DateEnd Date Perfecto Edge MD PCP - GeneralFamily Practice01/14/19 Yuan Rios MD Referring PhysicianPulmonary Disease11/20/15documented as of this encounter
--- OUTSIDE RECORDS SUMMARY | 2025-09-05 16:19 | XMS_ITS | Clinical Summary ---
Author Organization [facility] Address [address] [facility] [place] [address] Care Team Providers Care Camera Repair Technician Name Role Phone Yuan Rios MD Unavailable [phone] Perfecto Edge MD Primary Care Provider Unavail able Allergies Active AllergyReactionsCriticalityNoted DateCommentsLevofloxacinNausea and Glehktjs27/21/2016 Medications MedicationSigDispense QuantityRefillsLast FilledStart DateEnd DateStatus predniSONE (DELTASONE) 20 MG tablet Take 3 tabs by mouth daily x 3 days, then 2 tabs daily x 3 days, then 1 tab daily x 3 days, then 1/2 tab daily x 3 days. 20 tablet 5Active Encounters DateTypeDepartmentCare XvisQmqqbmdhzfj01/11/2025 1:50 PM MACHINE STAPLER - 07/25/2025 5:06 PM CSTEmeroland Cortes [facility] [address] [place] [address] Kenton Jones MD COPD exacerbation (H) (Primary Dx) Discharge Disposition: Home or Self Care07/25/2025Travelfrom Last 3 Months Social History Tobacco UseTypesPacks/DayYears UsedDateSmoking Tobacco: Never Assessed CommentsUnknownSex and Gender InformationValueDate RecordedSex Assigned at Not on fileLegal LdjTvfdqe36/08/2016 11:20 AM CSTGender IdentityNot on file Sexual OrientationNot on file Last Filed Vital Signs Vital SignReadingTime TakenCommentsBlood Nanrnbfn476/1224307/25/2025 4:58 PM MACHINE STAPLER Qylcl69444/11/2025 4:30 PM FBMIwwvnyltres43.8 ??C (98.2 ??F)07/25/2025 4:58 PM CSTRespiratory Wllh298009/24/2024 4:58 PM CSTOxygen Zmajvfqfhi85%07/25/2025 4:58 PM CSTInhaled Oxygen Concentration--Ubkxzz05.2 kg (209 lb 14.1 oz)07/25/2025 2:05 PM PKSEojtrz501.9 cm (5' 1)11/20/2015 11:28 AM CSTBody Mass Index39.66 11/20/2015 11:28 AM MACHINE STAPLER Plan of Treatment Health MaintenanceDue DateLast DoneCommentsADVANCE CARE BMMKFWYL1958NNUAL REVIEW OF HM GXMGTC33 1958COPD ACTION PLAN1958CT UYMSLWPOSTFI1958 DEXA1958FIT1958FLEX SIG1958 9464THHHRPWLZE1958sDNA (Cologuard)1958 0579YFKMTKEWXFW20/04/1968COLORECTAL CANCER PKVMUJLFW60/04/1968 LIPID1998RSV VACCINE (1 - Risk 50-74 years 1-dose series)2008ZOSTER VACCINE (1 of 2)2008MAMMO BHBGRENTW49DTAP/TDAP/TD VACCINE (2 - Td or Tdap), 09/14/2002FALL RISK ASSESSMENT 2023MEDICARE ANNUAL WELLNESS VISIT2023HQ-2 (once per calendar year) 5COVID-19 VACCINE ( season)/, 07/20/2023, 06/27/2022, Additional history existsINFLUENZA VACCINE (#1)/, 10/08/2023, 05/30/2022, Additional history existsDIABETES QIJNFYYTE31/11/2028 07/25/2025HEPATITIS C ZXAFNUBYJMayajcixy65/03/2024PNEUMOCOCCAL VACCINE 50+ YEARS Btetvpmnr39/03/2024, 07/17/2017, 07/14/2016HPV VACCINE (No Doses Required) CompletedMENINGITIS VACCINEAged OutNo longer eligible based on patient's age to complete this topic Procedures Procedure NamePriorityDate/TimeAssociated DiagnosisCommentsXR CHEST 2 VIEWSSTAT 07/25/2025 3:01 PM MACHINE STAPLER ISTAT GASES LACTATE VENOUS JOFHWFLD59/11/2025 2:21 PM MACHINE STAPLER INFLUENZA A/B, RSV AND SARS-COV2 EQZXILI84/11/2025 2:04 PM MACHINE STAPLER EKG 12-LEAD, TRACING UPDWGJGB54/11/2025 2:02 PM MACHINE STAPLER CBC WITH PLATELETS AND DIFFERENTIAL (LIMITED OCCURRENCES)STAT109/24/2024 1:59 PM MACHINE STAPLER CBC WITH PLATELETS AND NHOMVCHJNHBWBKQC90/11/2025 1:59 PM MACHINE STAPLER BLOOD GAS OZZXLXAKUS65/11/2025 1:59 PM MACHINE STAPLER BASIC METABOLIC PANEL (LIMITED OCCURRENCES)STAT109/24/2024 1:59 PM MACHINE STAPLER EXTRA HEPARINIZED LKTFVBAVDUL98/11/2025 1:59 PM MACHINE STAPLER EXTRA PURPLE TOP RKIIFLBM69/11/2025 1:59 PM MACHINE STAPLER EXTRA GREEN TOP (LITHIUM HEPARIN) ZYVXCNXM89/11/2025 1:59 PM MACHINE STAPLER EXTRA RED TOP VMBYUHLL57/11/2025 1:59 PM MACHINE STAPLER EXTRA BLUE TOP KKXWGFZP11/11/2025 1:59 PM MACHINE STAPLER EXTRA BLOOD CULTURE ESSFZQOWJM05/11/2025 1:59 PM MACHINE STAPLER EXTRA LBBRPMXI55/11/2025 1:59 PM MACHINE STAPLER from Last 3 Months Results * Chest XR, PA & LAT (07/25/2025 3:01 PM MACHINE STAPLER)Anatomical RegionLateralityModality ChestDigital RadiographySpecimen (Source)Anatomical Location / Laterality Collection Method / VolumeCollection TimeReceived Time07/25/2025 3:01 PM MACHINE STAPLER Impressions 07/25/2025 3:04 PM MACHINE STAPLER IMPRESSION: Cardiac silhouette is at the upper limit of normal in size given portable technique. Upper lobe predominant oligemia, suggestive of emphysema. Possible small bilateral pleural effusions with associated compressive atelectasis. No definite airspace consolidation or pneumothorax. No acute bony abnormality. Narrative 07/25/2025 3:04 PM MACHINE STAPLER EXAM: XR CHEST 2 VIEWS LOCATION: [facility] DATE: 07/25/2025 INDICATION: Dyspnea, hx of COPD COMPARISON: None. Procedure Note Oumar Nicholas MD - 07/25/2025 EXAM: XR CHEST 2 VIEWS LOCATION: [facility] DATE: 07/25/2025 INDICATION: Dyspnea, hx of COPD [...] Gases (lactate) venous, POCT (07/25/2025 2:21 PM MACHINE STAPLER) ComponentValueRef RangeTest MethodAnalysis TimePerformed AtPathologist SignatureLactic Acid POCT1.90.7 - 2.0 mmol/L109/24/2024 2:23 PM [facility] LABORATORY POCBicarbonate Venous POCT29(H)21 - 28 mmol/L109/24/2024 2:23 PM MACHINE STAPLER [facility] LABORATORY POCO2 Sat, Venous POCT77(H)70 - 75 %07/25/2025 2:23 PM [facility] POCpCO2 Venous WKHA7365 - 50 mm Hg07/25/2025 2:23 PM [facility] POCpH Venous POCT7.387.32 - 7.43109/24/2024 2:23 PM [facility] POCpO2 Venous VXAY9958 - 47 mm Hg07/25/2025 2:23 PM [facility] POC Specimen (Source)Anatomical Location / LateralityCollection Method / Volume Collection TimeReceived TimeBlood, venousBLOOD SPECIMEN / Obyiqcf9107/25/2025 2:21 PM CST07/25/2025 2:23 PM MACHINE STAPLER Narrative Authorizing ProviderResult TypeResult StatusJeremines PEREZ POCTFinal ResultPerforming OrganizationAddressCity/State/ZIP CodePhone Number LABORATORY POC [facility] Acute Care Lab [address] [facility] [facility] Lab (1st floor, no room number) [place] [address] * Influenza A/B, RSV and SARS-CoV2 PCR (COVID-19) Nose (07/25/2025 2:04 PM MACHINE STAPLER) ComponentValueRef RangeTest MethodAnalysis TimePerformed AtPathologist SignatureInfluenza A IHKHytmbqqjAqendxrk39/11/2025 2:50 PM [facility] Influenza B GGEDsxkbshbQerldbui55/11/2025 2:50 PM [facility] LABORATORYRSV PCR RvnsycfbWrxlskkv56/11/2025 2:50 PM [facility] LABORATORYSARS CoV2 PCRNegative Rxubyevn30/11/2025 2:50 PM [facility] LABORATORYComment:NEGATIVE: SARS-CoV-2 (COVID-19) RNA not detected, presumed negative.Specimen (Source)Anatomical Location / LateralityCollection Method / VolumeCollection TimeReceived Time SwabNASAL STRUCTURE / UnknownNon-blood Collection / Qltxpot7107/25/2025 2:04 PM CST07/25/2025 2:08 PM MACHINE STAPLER Narrative LABORATORY - 07/25/2025 2:50 PM MACHINE STAPLER Testing was performed using the Xpert Xpress CoV2/Flu/RSV Assay on the [employer] Instrument. This test should be ordered for [...] management. This test was validated by the [facility] [employer]. These laboratories are certified under the Clinical Laboratory Improvement Amendments of 1988 (CLIA-88) as qualified to perfom high complexity laboratory testing. Authorizing ProviderResult TypeResult Mimi Jones MDLAB - MICRO GENERAL ORDERABLESFinal ResultPerforming OrganizationAddressCity/State/ZIP Code Phone Number [facility] Acute Care Lab [address] Lab (1st floor, no room number) [place] [address] * EKG 12-lead, tracing only (07/25/2025 2:02 PM MACHINE STAPLER)ComponentValueRef RangeTest MethodAnalysis TimePerformed AtPathologist SignatureSystolic Blood Pressure mmHgRADIOLOGY RESULTSDiastolic Blood PressuremmHgRADIOLOGY RESULTSVentricular Qaor065GOEFZHQCOWOF RESULTSAtrial Pbzh533FNMTWGKGUCLI RESULTSPR Rrjbnkrq645fv RADIOLOGY RESULTSQRS Puygqeob98syRVQCDCTVQ AWQZAIGJQ211xgMXBBCNOWH RESULTSQTc 468msRADIOLOGY RESULTSP Uwqa45lxbfqjfZMKHXPAEZ RESULTSR DRJJ13ocmmwezUPBGWJNVH RESULTST Nwbs81gmuzmrrYYDEXCVJP RESULTSInterpretation ECGSinus tachycardia Nonspecific ST abnormality Abnormal ECG No previous ECGs available Unconfirmed report - interpretation of this ECG is computer generated - see medical record for final interpretation Confirmed by - EMERGENCY ROOM, PHYSICIAN ([id number]), acquisitions editor PAM KIRBY ([id number]) on 07/26/2025 6:40:34 AM RADIOLOGY RESULTSSpecimen (Source)Anatomical Location / LateralityCollection Method / VolumeCollection TimeReceived Time07/25/2025 2:02 PM CST07/26/2025 6:40 AM MACHINE STAPLER Narrative Authorizing ProviderResult TypeResult Mimi Jones MDECG ORDERABLES Edited Result - FinalPerforming OrganizationAddressCity/State/ZIP CodePhone Number RADIOLOGY RESULTS * Extra Heparinized Syringe (07/25/2025 1:59 PM MACHINE STAPLER)ComponentValueRef RangeTest MethodAnalysis TimePerformed AtPathologist SignatureHold XgonhcbqVWJ30/11/2025 3:18 PM CST LABORATORYSpecimen (Source)Anatomical Location / Laterality Collection Method / VolumeCollection TimeReceived TimeBlood, venousBLOOD SPECIMEN / UnknownVenipuncture / Yamgdcd7707/25/2025 1:59 PM CST07/25/2025 2:11 PM MACHINE STAPLER Narrative Authorizing ProviderResult TypeResult StatusKenton DUNCAN - BLOOD ORDERABLESFinal ResultPerforming OrganizationAddressCity/State/ZIP CodePhone Number [facility] [address] Lab (1st floor, no room number) [place] [address], [facility] * Extra Blood Culture Bottle (07/25/2025 1:59 PM MACHINE STAPLER)ComponentValueRef RangeTest MethodAnalysis TimePerformed AtPathologist SignatureHold MjrpbdidSJV13/11/2025 3:18 PM CST LABORATORYSpecimen (Source)Anatomical Location / Laterality Collection Method / VolumeCollection TimeReceived TimePeripheral blood (BC) STRUCTURE OF LEFT UPPER LIMB / UnknownVenipuncture / Pnbvgko5407/25/2025 1:59 PM CST07/25/2025 2:11 PM MACHINE STAPLER Narrative Authorizing ProviderResult TypeResult StatusKenton DUNCAN - BLOOD ORDERABLESFinal ResultPerforming OrganizationAddressCity/State/ZIP CodePhone Number [facility] Lab [address] Lab (1st floor, no room number) [place] [address], [facility] * Extra Purple Top Tube (07/25/2025 1:59 PM MACHINE STAPLER)ComponentValueRef RangeTest MethodAnalysis TimePerformed AtPathologist SignatureHold OtukpoptUWM78/11/2025 3:18 PM CST LABORATORYSpecimen (Source)Anatomical Location / Laterality Collection Method / VolumeCollection TimeReceived TimeBloodBLOOD SPECIMEN / UnknownVenipuncture / Lsmnaxw68/07/2025 1:59 PM CST07/25/2025 2:11 PM MACHINE STAPLER Narrative Authorizing ProviderResult TypeResult StatusKenton Jones MDLAB - BLOOD ORDERABLESFinal ResultPerforming OrganizationAddressCity/State/ZIP CodePhone Number [facility] [address] Lab (1st floor, no room number) [place] [address], [facility] * Extra Green Top ([place] Heparin) Tube (07/25/2025 1:59 PM MACHINE STAPLER)ComponentValue Ref RangeTest MethodAnalysis TimePerformed AtPathologist SignatureHold NiyqifviTLQ55/11/2025 3:18 PM [facility] LABORATORYSpecimen (Source)Anatomical Location / LateralityCollection Method / VolumeCollection TimeReceived Time BloodBLOOD SPECIMEN / UnknownVenipuncture / Ugxvyhn7007/25/2025 1:59 PM MACHINE STAPLER 07/25/2025 2:11 PM MACHINE STAPLER Narrative Authorizing ProviderResult TypeResult StatusKenton DUNCAN - BLOOD ORDERABLESFinal ResultPerforming OrganizationAddressCity/State/ZIP CodePhone Number [facility] [address] Lab (1st floor, no room number) [place] [address], [facility] * Extra Red Top Tube (07/25/2025 1:59 PM MACHINE STAPLER)ComponentValueRef RangeTest Method Analysis TimePerformed AtPathologist SignatureHold DypjshzsZEN52/11/2025 3:18 PM CST LABORATORYSpecimen (Source)Anatomical Location / LateralityCollection Method / VolumeCollection TimeReceived TimeBloodBLOOD SPECIMEN / Unknown Venipuncture / Wdfahqt0607/25/2025 1:59 PM CST07/25/2025 2:11 PM MACHINE STAPLER Narrative Authorizing ProviderResult TypeResult StatusKenton Jones MDLAB - BLOOD ORDERABLESFinal ResultPerforming OrganizationAddressCity/State/ZIP CodePhone Number [facility] [address] Lab (1st floor, no room number) [place] [address], [facility] * Extra Blue Top Tube (07/25/2025 1:59 PM MACHINE STAPLER)ComponentValueRef RangeTest Method Analysis TimePerformed AtPathologist SignatureHold RjebdtxoXHK48/11/2025 3:18 PM [facility] LABORATORYSpecimen (Source)Anatomical Location / LateralityCollection Method / VolumeCollection TimeReceived TimeBloodBLOOD SPECIMEN / Unknown Venipuncture / Katluoh0907/25/2025 1:59 PM CST07/25/2025 2:11 PM MACHINE STAPLER Narrative Authorizing ProviderResult TypeResult StatusJeremines Jones MDLAB - BLOOD ORDERABLESFinal ResultPerforming OrganizationAddressCity/State/ZIP CodePhone Number LABORATORY [facility] Acute Care Lab [address] Lab (1st floor, no room number) [place] [address], [facility] * (ABNORMAL) CBC with platelets and differential (07/25/2025 1:59 PM MACHINE STAPLER) ComponentValueRef RangeTest MethodAnalysis TimePerformed AtPathologist SignatureWBC Count11.49(H)4.00 - 11.00 10e3/uL07/25/2025 2:24 PM [facility] LABORATORYRBC Count5.133.80 - 5.20 10e6/uL07/25/2025 2:24 PM [facility] LAB[facility]ORY Irjkeinztf40.911.7 - 15.7 g/dL07/25/2025 2:24 PM [facility] LABORATORYHematocrit 46.735.0 - 47.0 %07/25/2025 2:24 PM [facility] UIPNTVJACECRJ00.078.0 - 100.0 fL 07/25/2025 2:24 PM [facility] MQBFMSNDDZNTL80.026.5 - 33.0 pg07/25/2025 2:[address] [facility] DQQOVPXMROATOR87.931.5 - 36.5 g/dL07/25/2025 2:24 PM [facility] LABORATORYRDW 15.3(H)10.0 - 15.0 %07/25/2025 2:24 PM [facility] LABORATORYPlatelet Mobus143601 - 450 10e3/uL07/25/2025 2:24 PM [facility]% Lihvyaeeqtr90.8%07/25/2025 2:24 PM [facility]% Lymphocytes3.3%07/25/2025 2:24 PM [facility]% Monocytes4.6%07/25/2025 2:24 PM [facility]% Eosinophils0.0%07/25/2025 2:24 PM [facility]% Basophils0.3%07/25/2025 2:24 PM [facility] LABORAT[facility]% Immature Granulocytes1.0%07/25/2025 2:24 PM [facility] LABORATORYNRBCs per 100 WBC 0.0<1.0 /5420407/25/2025 2:24 PM [facility] LABORATORYAbsolute Yeiffjbsrwq70.43(H) 1.60 - 8.30 10e3/uL07/25/2025 2:24 PM [facility] LABORATORYAbsolute Lymphocytes0.38 (L)0.80 - 5.30 10e3/uL07/25/2025 2:24 PM [facility] LABORATORYAbsolute Monocytes 0.530.00 - 1.30 10e3/uL07/25/2025 2:24 PM [facility] LABORATORYAbsolute Eosinophils <0.030.00 - 0.70 10e3/uL07/25/2025 2:24 PM [facility] LABORATORYAbsolute Basophils 0.030.00 - 0.20 10e3/uL07/25/2025 2:24 PM [facility] LABORATORYAbsolute Immature Granulocytes0.12<=0.40 10e3/uL07/25/2025 2:24 PM [facility] LABORATORYAbsolute NRBCs<0.0310e3/uL07/25/2025 2:24 PM [facility] LABORATORYSpecimen (Source) Anatomical Location / LateralityCollection Method / VolumeCollection Time Received TimeBloodBLOOD SPECIMEN / UnknownVenipuncture / Rxivgbh4607/25/2025 1:59 PM CST07/25/2025 2:11 PM MACHINE STAPLER Narrative Authorizing ProviderResult TypeResult StatusJeremines Jones MDLAB - BLOOD ORDERABLESFinal ResultPerforming OrganizationAddressCity/State/ZIP CodePhone Number [facility] Lab [address] Lab (1st floor, no room number) [place] [address], [facility] * (ABNORMAL) Basic Metabolic Panel (Limited Occurrences) (07/25/2025 1:59 PM MACHINE STAPLER)ComponentValueRef RangeTest MethodAnalysis TimePerformed AtPathologist YbqiuwddtMjpkgq359855 - 145 mmol/L109/24/2024 2:45 PM [facility] LABORATORYPotassium 4.53.4 - 5.3 mmol/L109/24/2024 2:45 PM [facility] OIDWLAOFPGYemxpoyf70710 - 107 mmol/L109/24/2024 2:45 PM [facility] LABORATORYCarbon Dioxide (CO2)2522 - 29 mmol/L 07/25/2025 2:45 PM [facility] LABORATORYAnion Ajo097 - 15 mmol/L109/24/2024 2:45 PM [facility] LABORATORYUrea Znbhpufm42.28.0 - 23.0 mg/dL07/25/2025 2:45 PM [facility] LABORATORYCreatinine0.760.51 - 0.95 mg/dL07/25/2025 2:45 PM [facility] LABORATORY GFR Bdnauoww73>60 mL/min/1.92t10907/25/2025 2:45 PM [facility] LABORATORYComment:eGFR calculated using 2020 CKD-EPI equation.Calcium9.48.8 - 10.4 mg/dL07/25/2025 2:45 PM [facility] QUQHRHHWWSYobuhdo205(H)70 - 99 mg/dL07/25/2025 2:45 PM [facility] LABORATORYSpecimen (Source)Anatomical Location / LateralityCollection Method / VolumeCollection TimeReceived TimeBloodBLOOD SPECIMEN / UnknownVenipuncture / Qfginvs2207/25/2025 1:59 PM CST07/25/2025 2:11 PM [facility] Narrative Authorizing ProviderResult TypeResult StatusJeremiaroverto Jones MDLAB - BLOOD ORDERABLESFinal ResultPerforming OrganizationAddressCity/State/ZIP CodePhone Number [facility] Lab [address] Lab (1st floor, no room number) [place] [address], [facility] * (ABNORMAL) Blood gas venous (07/25/2025 1:59 PM MACHINE STAPLER)ComponentValueRef Range Test MethodAnalysis TimePerformed AtPathologist SignaturepH Venous7.357.32 - 7.43109/24/2024 2:27 PM [facility] LABORATORYpCO2 Wmtyjp60(H)40 - 50 mm Hg07/25/2025 2:27 PM [facility] LABORATORYpO2 Syuyjz05(H)25 - 47 mm Hg07/25/2025 2:27 PM [facility] LABORATORYBicarbonate Bamuof87(H)21 - 28 mmol/L109/24/2024 2:27 PM [facility] LABORATORYBase Excess/Deficit Venous1.9-3.0 - 3.0 mmol/L109/24/2024 2:27 PM MACHINE STAPLER RH XKROJYAUBOIIG68 [place] 07/25/2025 2:27 PM [facility] LABORATORYOxyhemoglobin Jxszbz05(H)70 - 75 %07/25/2025 2:27 PM [facility] LABORATORYO2 Sat, Zlafyo17.0(H)70.0 - 75.0 %07/25/2025 2:27 PM MACHINE STAPLER [facility] LABORATORYSpecimen (Source)Anatomical Location / LateralityCollection Method / VolumeCollection TimeReceived TimeBlood, venousBLOOD SPECIMEN / Unknown Venipuncture / Rvhmhtb7007/25/2025 1:59 PM CST07/25/2025 2:11 PM MACHINE STAPLER Narrative [facility] LABORATORY - 07/25/2025 2:27 PM MACHINE STAPLER In healthy individuals, oxyhemoglobin (O2Hb) and oxygen saturation (SO2) are approximately equal. In the presence of dyshemoglobins, oxyhemoglobin can be considerably lower than oxygen saturation. Authorizing ProviderResult TypeResult StatusJeremines Jones MDLAB - BLOOD ORDERABLESFinal ResultPerforming OrganizationAddressCity/State/ZIP CodePhone Number LABORATORY [facility] Acute Care Lab [address] Lab (1st floor, no room number) [place] [address], [facility] from [place] [address] [place] [address] Care Teams Team MemberRelationshipSpecialtyStart DateEnd Date Perfecto Edge MD [facility] - [facility] Yuan Rios MD Referring PhysicianPulmonary Disease11/20/15
--- OUTSIDE RECORDS SUMMARY | 2025-09-05 16:19 | XMS_ITS | Clinical Summary ---
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 Name Role Phone Rachel Tanner MD Unavailable [phone] [facility], [place] Unavailable Mars Layne Primary Care Provid er Allergies No known active allergies Medications MedicationSigDispense QuantityRefillsLast FilledStart DateEnd DateStatus Nebulizer Indications:COPD with exacerbation (HC) 1 Device 12/22/2016Active DME Indications:Chronic obstructive pulmonary disease, unspecified COPD type (HC) Mouth pc for nebulizer 2 Applicator 12004/03/2017Active Nebulizer Accessories Indications:Chronic obstructive pulmonary disease, unspecified COPD type (HC) 1 Kit 04/03/2017Active inhalational spacing device Indications:COPD exacerbation (HC)For home use. 1 Device 12/31/2017Active cetirizine (ZYRTEC) 10 mg tablet Indications:Non-seasonal allergic rhinitis, unspecified triggerTake 1 Tablet (10 mg) by mouth once daily. 90 tablet. 2Active acetaminophen (TYLENOL EXTRA STRGTH) 500 mg tablet Indications:Allergic rhinitis, unspecified seasonality, unspecified trigger, Primary osteoarthritis, unspecified siteTake 2 Tablets (1,000 mg) by mouth every 6 hours if needed for Headache. Max acetaminophen dose: 4000mg in 24 hrs. 100 Tablet 2Active oxygen-air delivery systems (HOME OXYGEN) Indications:COPD exacerbation (HC),Chronic obstructive pulmonary disease, unspecified COPD type (HC)Oxygen for home use. Liters per minute: 1-2L per nasal cannula. Frequency of use: Continuous with portability.;. Length of need: 99 Months. 1 Each 2Active BIPAP Indications:SIRISHA (obstructive sleep apnea)BIPAP (E0470) machine for home use at pressure: BiPap EPAP 8 IPAP 13, Choice of mask (A7030 or A7034) w/full face cushion (A7031) x1/mo, nasal cushion (A7032) x2/mo, or nasal pillows (A7033) x 2/mo; Length of Need: 99 months; Frequency of use: Daily 1 Each 5Active montelukast 10 mg tablet Indications:Chronic obstructive pulmonary disease, unspecified COPD type (HC) Take 1 Tablet (10 mg) by mouth at bedtime. 90 Tablet 5Active tiotropium bromide (Spiriva Respimat) 2.5 mcg/actuation mist for inhalation Indications:Chronic obstructive pulmonary disease, unspecified COPD type (HC) INHALE 2 PUFFS BY MOUTH EVERY DAY 3 Each 5Active predniSONE 5 mg tablet Indications:COPD exacerbation (HC)Take 1 Tablet (5 mg) by mouth two times daily with meals. 60 Tablet 5Active amLODIPine 2.5 mg tablet Indications:Essential hypertension with goal blood pressure less than 140/90Take 1 Tablet (2.5 mg) by mouth once daily. 90 Tablet 5Active budesonide-formoteroL (Symbicort) 160-4.5 mcg/actuation (160-4.5 mcg each actuation) inhaler Indications:Chronic obstructive pulmonary disease, unspecified COPD type (HC) INHALE 2 PUFFS BY MOUTH TWICE A DAY - RINSE MOUTH AFTER EACH DOSE (DISCARD THREE MONTHS AFTER REMOVAL FROM FOIL POUCH) 3 Each 5Active fluticasone (50 mcg per actuation) nasal solution (FLONASE) Indications:Allergic rhinitis, unspecified seasonality, unspecified trigger Inhale 2 Sprays into affected nostril(s) once daily. 48 mL 5Active nystatin powder (MYCOSTATIN) powder Indications:Yeast infection of the skinApply 1 Strip topically to affected area(s) four times daily. 15 g 5Active albuterol 0.083% (2.5 mg/3 mL) neb solution Indications:COPD exacerbation (HC)Inhale 3 mL (2.5 mg) via a nebulizer 4 times daily. 1080 mL tive guaiFENesin (MUCINEX) 600 mg Extended-Release tablet Indications:COPD exacerbation (HC)Take 1 Tablet (600 mg) by mouth two times daily. 60 Tablet tive Mucus Clearing Device amanda Indications:COPD with chronic bronchitis (HC)As directed 1 Each once daily. Acapella high flow. Use after nebulizer 1 Each 07/11/2025tive Nebulizer Indications:COPD with chronic bronchitis (HC)Nebulizer, disposable neb kit x 4, reusable neb kit x 1, mask x 1, filters x 1. Frequency of use: daily; Medication: albuterol Length of need: 99 months 1 Each 07/11/2025tive levalbuterol (Xopenex HFA) 45 mcg/actuation inhaler Indications:Chronic obstructive pulmonary disease, unspecified COPD type (HC) INHALE TWO PUFFS BY MOUTH EVERY 4 HOURS NEEDED 3 Each 5Active predniSONE (DELTASONE) 20 mg tablet Indications:COPD exacerbation (HC)Take 2 Tablets (40 mg) by mouth once daily with a meal for 4 days. 8 Tablet tive doxycycline hyclate 100 mg capsule Indications:COPD exacerbation (HC)Take 1 Capsule (100 mg) by mouth two times daily for 7 days. 14 Capsule tive Active Problems ProblemNoted DateDiagnosed DateCOPD with chronic ubsqwscwnk36/25/2025Morbid rdvmduu8509/30/2017OSA 06/04/2017 AHI-6, in REM sleep 32 with oxygen changes, severe COPD06/16/2017COPD with liuwkwmzgcsc39/31/8719Ssscbyx81/31/2017HTN (hypertension)11/10/2016Allergic rhinitis due to phnmcuho78/28/2015 Resolved Problems ProblemNoted DateDiagnosed DateResolved FgqtGuhzyzg96Pneumonia due to infectious sxdiyeoc80ute pocoumubwev75/31/2017 06/08/2025Special screening for malignant neoplasms, colon Overview (11/26/2014): needs colonoscopy or stool IFOBT 11/2014 letter sent Allergic dzlrhtfc59Tobacco use qqlffdfo03 Chronic airway obstruction, not elsewhere ocxlepgkoq35 Overview (05/18/2007): Asthma Encounters DateTypeDepartmentCare YdmoRdzevveaiqb23/21/2025 5:08 PM COSMETIC ACCOUNT COORDINATOR - 09/03/2025 8:24 PM [facility]STEmer[facility]Map[facility] [address] [place] [address] Jeremie Kim MD COPD exacerbation (HC) (Primary Dx) Discharge Disposition: Home Self Care09/03/20257617Schdkg93/11/2025Results Follow-Up [facility] [address] [place] [address] Yancy Bro MD 08/21/2025Nurse Triage [facility] [address] [place] [address] Mars Layne PA New Med Grueanx8807/13/2025Telephone [facility] [address] [place] [address] [place] [address] Yancy Bro MD 07/12/2025 3:10 PM CDTAncillary Procedure [facility] [address] [place] [address] 07/11/2025 9:30 AM CDTOffice Visit [facility] [address] [place] [address] Yancy Bro MD Consult (COPD with chronic bronchitis/SOB/Limited activities/Declined severely within the past 6-8 months)07/11/20253843Iqpgde39/23/7889Xfsbcc88/22/2025 10:25 AM CD[address]elemedicine [address] [address] Mars Layne PA Breathing Problem (chest tightness, cough with thick colored phlegm x 2 weeks - ER followup - has appt with locket maker on thursday)06/30/20253157Yfqcpq40/12/2025 2:23 PM CDT - 06/25/2025 6:13 PM CDTEEss[facility] Health [address] [place] [address] Rossi Agarwal DO COPD with exacerbation (HC) (Primary Dx); Yeast infection of the skin Discharge Disposition: Home Self Care06/25/20251535Eupmhm89/25/2025 7:55 AM CDT Office Visit [address] [address] Mars Layne PA Establish Care (breathing has been worse lately, cough with lot of mucous with some colored mucous,sinus pressure and headaches finished augmentin yesterday) 06/08/2025Telephone [address] [address] Mars Layne PA Screening (TB/COUGH)06/08/2025Travelfrom Last 3 Months Immunizations ImmunizationAdministration DatesNext DueCOVID-19 vaccine (Pfizer-BioNTech 30mcg/0.3mL) 12YO+ BIVALENT PF, MDV12COVID-19 vaccine ([employer]-BioNTech 30mcg/0.3mL) PF, MDV109/29/2020,12/12/2020,11/21/2020Influenza, High-dose Vuppuvypxgd88/09/2020Influenza, IIV3 (Age >=3 years)09/22/2006Influenza, IIV4 05/30/2022,07/30/2021,06/21/2020,06/09/2019,06/10/2018,06/11/2017Influenza, Inactivated AIIV4 (Age 65+ Years) Preserv Free10/08/2023Influenza, Inactivated IIV3 (Age 65+ Years) Preserv Free4Pneumococcal Conj 20-valent (Prevnar 20)4Pneumococcal Poly,23-Valent (Pneumovax)07/14/2016Pneumococcal conj 13-Valent (Prevnar 13)07/17/2017Td (Age >=7 Years)09/14/2002Tdap02/04/2013 Family History Medical HistoryRelationNameCommentsGood HealthBrother 1JerryGood HealthBrother 2 DanielGood HealthDaughterCancer-breastPaternal Aunt 1Cancer-colonPaternal Aunt 1 dx age 50Cancer-breastPaternal Aunt 2dx age 65Cancer-colonPaternal Grandfatherdx age 70'sGood HealthSister 1LauraHeart failureSister 2DotCOPDSister 3LucyCOPD Sister 4EvonneHeart failureSister 4EvonneGood HealthSister 5BarbGood Health Sister 6DianeGood HealthSister 7NancyGood HealthSon 1Good HealthSon 2 Cancer-ovarianNo Family HistoryRelationNameStatusCommentsBrother 1JerryAlive Brother 2DanielAliveDaughterAliveFatherDeceasedMotherDeceasedPaternal Aunt 1 Paternal Aunt 2Paternal GrandfatherSister 1LauraAliveSister 2DotDeceasedSister 3 LucyDeceasedSister 4EvonneAliveSister 5BarbAliveSister 6DianeAliveSister 7Nancy AliveSon 1AliveSon 2Alive Social History Tobacco UseTypesPacks/DayYears UsedDateSmoking Tobacco: FormerCigarettes1.5Quit: 01/02/2014Passive Smoke Exposure: PastSmokeless Tobacco: Never Tobacco Cessation:Counseling Given: Not Answered Alcohol UseStandard Drinks/WeekCommentsYes0 (1 standard drink = 0.6 oz pure alcohol)occasionalPHQ-2AnswerDate RecordedPHQ-2 TOTAL FGPAU867Social ConnectionsAnswerDate RecordedDo you often feel lonely or isolated from those around you?lcohol UseAnswerDate RecordedHow often do you have a drink containing alcohol?How many drinks containing alcohol do you have on a typical day when you are drinking?How often do you have five or more drinks on one occasion?Financial Resource StrainAnswer Date RecordedDifficulty of Paying Living Wqifuxnw059/20/2025Difficulty of Paying Living ExpensesNot on file06/03/2025Food InsecurityAnswerDate RecordedDo you worry your food will run out before you are able to buy more? Transportation NeedsAnswerDate RecordedDoes lack of transportation keep you from medical appointments?Does lack of transportation keep you from work, meetings or getting things that you need?Housing StabilityAnswerDate RecordedWhat is your housing situation today?Interpersonal Safety AnswerDate RecordedAre you being hit, kicked, pushed or yelled at (see row info)?No09/03/2025Interpersonal Safety Abuse 12 - 18Not on file09/03/2025 Interpersonal Safety Ambulatory VulnerabilityNot on file09/03/2025Utilities AnswerDate RecordedDo you have trouble paying for utilities (for example, heat, electricity, water, phone)?CommentsNoSex and Gender InformationValueDate RecordedSex Assigned at BirthNot on fileLegal SexFemale 09/27/2012 5:23 AM CSTGender IdentityNot on fileSexual OrientationNot on file OccupationIndustryJob Start DateJob End DateretiredNot on fileNot on fileNot on file Last Filed Vital Signs Vital SignReadingTime TakenCommentsBlood Ubuslqgu654/8109/03/2025 4:46 PM COSMETIC ACCOUNT COORDINATOR Mmhno58964/21/2025 4:46 PM HVIXfaxnlitnvk98.1 ??C (98.8 ??F)09/03/2025 4:46 PM CSTRespiratory Ency5575 4:46 PM CSTOxygen Mjzfdxvvyu89%09/03/2025 5:49 PM CSTInhaled Oxygen Concentration--Pugcxc56.8 kg (209 lb)09/03/2025 4:46 PM COSMETIC ACCOUNT COORDINATOR Rqgyzj046.9 cm (5' 1)09/03/2025 4:46 PM CSTBody Mass Index39.4909/03/2025 4:46 PM COSMETIC ACCOUNT COORDINATOR Plan of Treatment DateTypeDepartmentCare Team (Latest Contact Info)Cwbcxrvyinf11/29/2025 9:30 AM CSTProcedure Only [facility] [address] [place] [address] [place] [address] 09/11/2025 10:30 AM CSTOffice Visit [address] [place] [address] Yancy Bro MD [address] [facility] [place] [address] Health MaintenanceDue DateLast DoneCommentsColonoscopy through age [address]5004/17/2003 RSV vaccine for adults or (1 - Risk 50-74 years 1-dose series) 2008Zoster (shingles) series for age 50+ (1 of 2)2008Mammogram for age 40-75, 02/08/2015, 02/06/2015Tetanus hjczxau6602/04/2023 02/04/2013, 09/14/2002DEXA/DXA scan for age 65+3Depression screening for age 12+/11/2023, 05/09/2022, 06/18/2020, Additional history existsMedicare Wellness for age 65+/11/2023, 01/28/2018COVID-19 vaccine series ( season)/, 07/20/2023, 06/27/2022, Additional history existsInfluenza Vaccine (#1)/, 10/08/2023, 05/30/2022, Additional history existsBMI (ht and wt on same day) for age 18+ /2025, 06/08/2025, 02/15/2024, Additional history existsLipids for age 45-75069002/15/2024Hepatitis C screening for age 18-79Completed 4Pneumococcal series for age 50+Hiaztqrur99/03/2024, 07/17/2017, 07/14/2016Hepatitis B series for 19+Aged OutNo longer eligible based on patient's age to complete this topic Goals GoalPatient Goal TypeAssociated ProblemsRecent ProgressPatient-Stated?Author BLOOD PRESSURE - MAINTAINS BP less than 140/90 Blood PressureNoTapperShaq MD Procedures Procedure NamePriorityDate/TimeAssociated DiagnosisCommentsUS VENOUS LOWER EXTREMITY CJIDDMCXI39/21/2025 6:58 PM COSMETIC ACCOUNT COORDINATOR XR CHEST 1 VIEW AZCNLCPRBJEC52/21/2025 6:16 PM COSMETIC ACCOUNT COORDINATOR BLOOD GAS,FQOAVACKOW18/21/2025 5:41 PM COSMETIC ACCOUNT COORDINATOR CBC W PLT NO OHICFQEC79/21/2025 5:41 PM COSMETIC ACCOUNT COORDINATOR BASIC METABOLIC VWZEYNYBM35/21/2025 5:40 PM COSMETIC ACCOUNT COORDINATOR COVID/FLU/RSV XNXKOZjunb16/21/2025 5:10 PM COSMETIC ACCOUNT COORDINATOR CT CHEST WJKYGL32 2:51 PM CDT COPD with chronic bronchitis (HC) CBC WITH AUTO CMDZJIUODQMTEtijayk06/28/2025 12:09 PM CDT COPD with chronic bronchitis (HC) IMMUNOGLOBULIN E,IZYRkqqjkw14/28/2025 12:09 PM CDT COPD with chronic bronchitis (HC) ASPERGILLUS FUMAGATUS QRDAzkeovo42/28/2025 12:09 PM CDT COPD with chronic bronchitis (HC) ASPERGILLUS FUMIGATUS OTZLzpgvuo29/28/2025 12:09 PM CDT COPD with chronic bronchitis (HC) Seasonal allergic rhinitis due to fungal spores CBC WITH AUTO RDFTKRMWIBFSRubfkrn70/28/2025 12:09 PM CDT COPD with chronic bronchitis (HC) HISTOPLASMA QUANTITATIVE NFRPTTTQpwrcyl12/28/2025 12:09 PM CDT COPD with chronic bronchitis (HC) BLASTOMYCES FWWBTTGZofheco79/28/2025 12:09 PM CDT COPD with chronic bronchitis (HC) FUNGUS CULT, OTHER WAUIGYTqujzpo13/28/2025 9:30 AM CDT COPD with chronic bronchitis (HC) SPUTUM CULTURE, BUWHAFcovcxt32/28/2025 9:30 AM CDT COPD with chronic bronchitis (HC) AFB CULTURE, MHDZZOthlhab89/28/2025 9:30 AM CDT COPD with chronic bronchitis (HC) TROPONIN T (HS) ONE MDRHRdtdl73/12/2025 5:18 PM CDT XR CHEST 2 VIEWS PA AND KXTRETAGSJG40/12/2025 4:08 PM CDT CBC WITH AUTO SRDHLTBGHTBOZFHQ11/12/2025 3:21 PM CDT LACTATE JBQEOBVXEA52/12/2025 3:21 PM CDT BLOOD GAS,SVFLRMOIYB41/12/2025 3:21 PM CDT PRO-WGEEHOJ0406/25/2025 3:21 PM CDT TROPONIN T (HS) ACUTE W/2HR NWINXUQIKD14/12/2025 3:21 PM CDT D-DIMER,NQEMQSDOZREDZOOE33/12/2025 3:21 PM CDT BASIC METABOLIC AASCSXPLX46/12/2025 3:21 PM CDT CBC WITH AUTO XRFGBFHPMNMAXICL63/12/2025 3:21 PM CDT EKG 12 UNRHAWJN70/12/2025 2:56 PM CDT INFLUENZA A/B PYOFBSZ68/12/2025 2:48 PM CDT COVID-19 MZPMILPFLYBWA61/12/2025 2:48 PM CDT ANTI MHIMpxaeur34/03/2024 11:51 AM CDT Encounter for hepatitis C screening test for low risk patient LIPID PANEL W REFLEX MEASURED QOTZIVT2102/15/2024 11:51 AM CDT Screening for lipid disorders XR MAMMO BILAT HAIRQXMWVOnmxzyr70/14/2017 1:40 PM COSMETIC ACCOUNT COORDINATOR Screening breast examination from Last 3 Months or Most Recently Relevant to Health Maintenance Results * US VENOUS LOWER EXTREMITY RIGHT (09/03/2025 6:58 PM COSMETIC ACCOUNT COORDINATOR)Anatomical Region LateralityModalityLEGS, LEG R, AbdomenUltrasoundSpecimen (Source)Anatomical Location / LateralityCollection Method / VolumeCollection TimeReceived Time Narrative Authorizing ProviderResult TypeResult StatusOliver Norriscrystal Kim MDUSFinal Result * XR CHEST 1 VIEW PORTABLE (09/03/2025 6:16 PM COSMETIC ACCOUNT COORDINATOR)Anatomical RegionLaterality ModalityHEART, THORAX, CHESTDigital RadiographySpecimen (Source)Anatomical Location / LateralityCollection Method / VolumeCollection TimeReceived Time Narrative Authorizing ProviderResult TypeResult StatusOliver Norriscrystal Kim MDGENERAL IMAGINGFinal Result * CBC W PLT NO DIFF (09/03/2025 5:41 PM COSMETIC ACCOUNT COORDINATOR)ComponentValueRef RangeTest Method Analysis TimePerformed AtPathologist SignatureWHITE BLOOD COUNT8.04.5 - 11.0 thou/cu mm12/ 5:45 PM [facility]RED BLOOD COUNT4.824.00 - 5.20 mil/cu mm09/03/2025 5:45 PM [facility]ITALHEMOGLOBIN14.312.0 - 16.0 g/dL09/03/2025 5:45 PM [facility]ITALHEMATOCRIT44.733.0 - 51.0 % 09/03/2025 5:45 PM [facility]ITALMCV9380 - 100 fL09/03/2025 5:45 PM [facility] HOMEMCH29.726.0 - 34.0 pg09/03/2025 5:45 PM [facility] MCHC32.032.0 - 36.0 g/dL09/03/2025 5:45 PM [facility]ITALRDW15.011.5 - 15.5 %09/03/2025 5:45 PM [facility]OSPITALPLATELET JUZWB605391 - 440 thou/cu mm09/03/2025 5:45 PM [facility]ITALMPV9.26.5 - 11.0 fL09/03/2025 5:45 PM [facility]ITALpecimen (Source)Anatomical Location / Laterality Collection Method / VolumeCollection TimeReceived TimeBloodBLOOD SPECIMEN / UnknownVenipuncture / Xhpedck7509/03/2025 5:41 PM CST09/03/2025 5:42 PM COSMETIC ACCOUNT COORDINATOR Narrative Authorizing ProviderResult TypeResult StatusOliver Norriscrystal Kim MDHEMATOLOGY Final ResultPerforming OrganizationAddressCity/State/ZIP CodePhone Number [facility] [address] [address] * (ABNORMAL) BLOOD GAS,VENOUS (09/03/2025 5:41 PM COSMETIC ACCOUNT COORDINATOR) Only the most recent of2 resultswithin the time period is included. ComponentValueRef RangeTest MethodAnalysis TimePerformed AtPathologist Signature PH, VENOUS7.407.32 - 7.43111/04/2024 5:44 PM [facility]ITALPCO2, ASPJBZ49 (H)41 - 51 mmHg09/03/2025 5:44 PM [facility]PO2, BTBXKA13(H)35 - 40 mmHg09/03/2025 5:44 PM [facility]ITALHCO3,TJWNWS29(H)22 - 29 mmol/L 09/03/2025 5:44 PM [facility]ITALBASE EXCESS, VENOUS, POCT7.5(H)-2.0 - 3.0 09/03/2025 5:44 PM [facility]ITALO2 SATURATION, DJUSKT09(H)70 - 75 % 09/03/2025 5:44 PM [facility]ITALPATIENT CLVPTSLFAPS13.0Degrees C 09/03/2025 5:44 PM [facility]ITALpecimen (Source)Anatomical Location / LateralityCollection Method / VolumeCollection TimeReceived TimeBloodVENOUS BLOOD SPECIMEN / UnknownVenipuncture / Zysxtrm4009/03/2025 5:41 PM CST09/03/2025 5:42 PM COSMETIC ACCOUNT COORDINATOR Narrative Authorizing ProviderResult TypeResult StatusOliver Norris Kim MDCHEMISTRY Final ResultPerforming OrganizationAddressCity/State/ZIP CodePhone Number [facility] [address] [address] * (ABNORMAL) BASIC METABOLIC PANEL (09/03/2025 5:40 PM COSMETIC ACCOUNT COORDINATOR) Only the most recent of2 resultswithin the time period is included. ComponentValueRef RangeTest MethodAnalysis TimePerformed AtPathologist Signature UWIQLX991540 - 145 mmol/L111/04/2024 6:02 PM [facility]ITALPOTASSIUM4.13.5 - 5.1 mmol/L111/04/2024 6:02 PM [facility]ITALEXHUSKOSHOCEJGJY12437 - 107 mmol/L 09/03/2025 6:02 PM [facility]ITALCO2,ZLUHE7106 - 29 mmol/L111/04/2024 6:02 PM [facility]OSPITALANION SAO876 - [address]111/04/2024 6:02 PM [facility] TMWZKYD758(H)70 - 99 mg/dL09/03/2025 6:02 PM [facility]PITALCALCIUM9.58.8 - 10.4 mg/dL09/03/2025 6:02 PM [facility]ITALComment: Reference ranges for this test were updated on 07/19/2024 to reflect our healthy population more accurately. Reference range changes are not retroactively applied to results, but previous results using the same methodology can be interpreted in the context of the new reference range. BUN7(L)8 - 23 mg/dL09/03/2025 6:02 PM [facility]PITALCREATININE0.680.50 - 0.90 mg/dL09/03/2025 6:02 PM [facility]PITALBUN/CREAT BPVOW8314 - 20 09/03/2025 6:02 PM [facility]OSPITALeGFR>90>90 mL/min/1.76l56609/03/2025 6:02 PM [facility]ITALComment:As of 11/26/2021, eGFR is calculated by the CKD- EPI creatinine equation without race adjustment. ??eGFR can be influenced by muscle mass, exercise, and diet. ??The reported eGFR is an estimation onlyand is only applicable if the renal function is stable.Specimen (Source)Anatomical Location / LateralityCollection Method / VolumeCollection TimeReceived TimeBlood BLOOD SPECIMEN / UnknownVenipuncture / Ieblkdm5709/03/2025 5:40 PM CST09/03/2025 5:42 PM COSMETIC ACCOUNT COORDINATOR Narrative Authorizing ProviderResult TypeResult StatusOliver Norris Kim MDCHEMISTRY Final ResultPerforming OrganizationAddressCity/State/ZIP CodePhone Number [facility] [address] [address] * COVID/FLU/RSV PANEL (09/03/2025 5:10 PM COSMETIC ACCOUNT COORDINATOR)ComponentValueRef RangeTest Method Analysis TimePerformed AtPathologist SignatureCOVID 19 [place] MOLECULAR QzomobhaMlydeetq66/21/2025 5:54 PM [facility]ITALComment:All PCR tests are subject to false negative result due to variability in viral load and collection technique. A negative result does not rule out a SARS-CoV-2 infection. Clinical correlation required.INFLUENZA A OKPZndykicn44/21/2025 5:54 PM [facility]OSPITALINFLUENZA B WZXDegmoymn98/21/2025 5:54 PM [facility] AND HOMERespiratory Syncytial QwvatBpggkctx95/21/2025 5:54 PM [facility]ITALpecimen (Source)Anatomical Location / LateralityCollection Method / VolumeCollection TimeReceived TimeSwabNASOPHARYNGEAL SWAB / Unknown Non-Blood / Uwdyhnp9509/03/2025 5:10 PM CST09/03/2025 5:16 PM COSMETIC ACCOUNT COORDINATOR Narrative Authorizing ProviderResult TypeResult StatusTrenton Len LEONARDO MICROBIOLOGYFinal ResultPerforming OrganizationAddressCity/State/ZIP CodePhone Number [facility] [address] [phone] * CT CHEST WO (07/12/2025 2:51 PM CDT)Anatomical RegionLateralityModalityCHEST, THORAX, HEARTComputed TomographySpecimen (Source)Anatomical Location / LateralityCollection Method / VolumeCollection TimeReceived Time07/13/2025 4:06 AM CDT Impressions 07/13/2025 4:06 AM CDT 1. Prominent mediastinal lymph nodes noted previously have resolved. 2. Moderate upper lobe predominant centrilobular emphysema. Mild bronchial wall thickening and mildbronchiectasis. There is background pattern is similar to the prior study. There also scattered linear opacities primarily at the bases likely due to atelectasis or scarring/fibrosis. 3. Nodularity present previously has significantly improved. The nodules that remain appear to be tree-in-bud nodules which are considered infectious/inflammatory. 4. No focal consolidation, infiltrate or mass. 5. Other nonacute appearing findings as above Please note that all CT scans at this facility use dose modulation, iterative reconstruction, and/or weight-based dosing when appropriate to reduce radiation dose to as low as reasonably achievable. Dictated by Edinson King MD @ 07/13/2025 4:06:03 AM (Electronically Signed) Narrative 07/13/2025 4:06 AM CDT For Patients: As a result of the Century Cures Act, medical imaging exams and procedure reports are released immediately into your electronic medical record. You may view this report before your referring provider. If you have questions, please contact your health care provider. INDICATION: COPD with chronic bronchitis COMPARISON: June 06, 2022 TECHNIQUE: : CT examination of the chest was performed without contrast.Thin axial sections were obtained from the thoracic inlet through the lung bases. Please note that all CT scans at this facility use dose modulation, iterative reconstruction, and/or weight-based dosing when appropriate to reduce radiation dose to as low as reasonably achievable. FINDINGS: : HEART and MEDIASTINUM: The heart size is normal. Prominent mediastinal lymph nodes noted previouslyhave significantly improved. Currently, there are no enlarged lymph nodes. Calcified lymph nodes are noted probably due to remote granulomatous infection. There are atherosclerotic vascular and valvular calcifications. LUNGS and PLEURAL SPACES: Evaluation limited due to respiratory motion artifact. There is moderate upper lobe predominant emphysema which is primarily centrilobular. There also areas of mild bronchial wall thickening and mild bronchiectasis. This background pattern is similar to the prior study. There are scattered linear opacities primarily at the bases which are probably atelectatic or fibrotic. Nodularity persists but has significantly improved. This is primarily in the lower aspect of the lungs and most of the nodules are tree-in-bud nodules. These are generally considered infectious/inflammatory. No focal consolidation.No mass. VISUALIZED UPPER ABDOMEN: Moderate to large hiatal hernia larger than previously. Hepatic steatosis. Cholecystectomy. Right renal cortical scarring. OSSEOUS STRUCTURES: Age-appropriate appearance. No acute fracture or destructive process. TUBES and LINES: None. Procedure Note Edinson King MD - 07/13/2025 For Patients: As a result of the Century Cures Act, medical imagingexams and procedure reports are released immediately into your electronicmedical record. You may view this report before your referring provider.If you have questions, please contact your health care provider. INDICATION: COPD with chronic bronchitis COMPARISON: June 06, 2022 TECHNIQUE: : CT examination of the chest was performed without contrast.Thin axialsections were obtained from the thoracic inlet through the lung bases. Please note that all CT scans at this facility use dose modulation,iterative reconstruction, and/or weight-based dosing when appropriate toreduce radiation dose to as low as reasonably achievable. FINDINGS: : HEART and MEDIASTINUM: The heart size is normal. Prominent mediastinallymph nodes noted previously have significantly improved. Currently, thereare no enlarged lymph nodes. Calcified lymph nodes are noted probably dueto remote granulomatous infection. There are atherosclerotic vascular andvalvular calcifications. LUNGS and PLEURAL SPACES: Evaluation limited due to respiratory motionartifact. There is moderate upper lobe predominant emphysema which isprimarily centrilobular. There also areas of mild bronchial wallthickening and mild bronchiectasis. This background pattern is similar tothe prior study. There are scattered linear opacities primarily at thebases which are probably atelectatic or fibrotic. Nodularity persists buthas significantly improved. This is primarily in the lower aspect of thelungs and most of the nodules are tree-in-bud nodules. These are generallyconsidered infectious/inflammatory. No focal consolidation.No mass. VISUALIZED UPPER ABDOMEN: Moderate to large hiatal hernia larger thanpreviously. Hepatic steatosis. Cholecystectomy. Right renal corticalscarring. OSSEOUS STRUCTURES: Age-appropriate appearance. No acute fracture ordestructive process. TUBES and LINES: None. IMPRESSION: 1. Prominent mediastinal lymph nodes noted previously have resolved. 2. Moderate upper lobe predominant centrilobular emphysema. Mild bronchialwall thickening and mild bronchiectasis. There is background pattern issimilar to the prior study. There also scattered linear opacitiesprimarily at the bases likely due to atelectasis or scarring/fibrosis. 3. Nodularity present previously has significantly improved. The nodulesthat remain appear to be tree-in-bud nodules which are considered infectious/inflammatory. 4. No focal consolidation, infiltrate or mass. 5. Other nonacute appearing findings as above Please note that all CT scans at this facility use dose modulation,iterative reconstruction, and/or weight-based dosing when appropriate toreduce radiation dose to as low as reasonably achievable. Dictated by Edinson King MD @ 07/13/2025 4:06:03 AM (Electronically Signed) Authorizing ProviderResult TypeResult StatusEsther Ravindra Rodriguez [facility] MDCTFinal Result * HISTOPLASMA QUANTITATIVE ANTIGEN BLD (07/11/2025 12:09 PM CDT)ComponentValue Ref RangeTest MethodAnalysis TimePerformed AtPathologist SignatureHISTOPLASMA AG QN RESULTNone DetectedNone Detected ng/mL07/13/2025 11:09 AM CDTLABCORP [facility] ([facility])Comment: Reference Interval: None Detected Reportable Range: Positive Results reported in ng/mL from 0.20 ng/mL to 20.00 ng/mL. Positive results above 20.00 ng/mL are reported as Above the Limit of Quantification Cross-reactions occur with Blastomyces spp., Coccidioides spp., and Paracoccidioides brasiliensis. The test was developed and its performance characteristics determined by [employer]. It has not been cleared or approved by the FDA; however, FDA clearance or approval is not currently required for clinical use. The results are not intended to be used as the sole means for clinical diagnosis or patient management decisions. HISTOPLASMA AG QN VVEEJFCvvhidwe13/30/2025 11:09 AM [facility] ([facility])SPECIMEN TYPE HISTOPLASMA VEMZICYC70/30/2025 11:09 AM [facility] TEST[facility] ([facility])Specimen (Source)Anatomical Location / LateralityCollection Method / VolumeCollection TimeReceived TimeBloodBLOOD SPECIMEN / UnknownQuest Collect / Ykpjslh9007/11/2025 12:09 PM CDT1 12:09 PM CDT Narrative [facility] (CET) - 07/13/2025 11:09 AM CDT Performed at: 01 - [facility] [address] [place] [address], [place] ??[phone] Rn Ante Partum: Antonio Montoya MD, Phone: ??[phone] Authorizing ProviderResult TypeResult StatusEsther Ravindra Rodriguez [facility] OUTSFinal ResultPerforming OrganizationAddressCity/State/ZIP CodePhone Number [facility] (CET) [facility] * BLASTOMYCES ANTIGEN (07/11/2025 12:09 PM CDT)ComponentValueRef RangeTest MethodAnalysis TimePerformed AtPathologist SignatureMVISTA(R) BLASTOMYCES AG None DetectedNone Detected ng/mL07/13/2025 11:09 AM [facility] TEST[facility] (CET)Comment: Reference Interval: None Detected Reportable Range: 0.31 ng/mL - 20.00 ng/mL Results above 20.00 ng/mL are reported as 'Positive, Above the Limit of Quantification' This test was developed and its performance characteristics determined by [employer]. It has not been cleared or approved by the FDA; however, FDA clearance or approval is not currently required for clinical use. The results are not intended to be used as the sole means for clinical diagnosis or patient decisions. INTERP ([facility])Qokuzele81/30/2025 11:09 AM CDTLTR[facility] ([facility]ET)SPECIMEN YCBUZHJZV27/30/2025 11:09 AM [facility] ([facility])Specimen (Source)Anatomical Location / LateralityCollection Method / VolumeCollection TimeReceived TimeOther BLOOD SPECIMEN / UnknownNon-Blood / Nomszkw9507/11/2025 12:09 PM CDT1 12:09 PM CDT Narrative [facility] TEST[facility] (CET) - 07/13/2025 11:09 AM CDT Performed at: - [facility] [address] [place] [address], [place] ??[phone] Rn Ante Partum: Antonio Montoya MD, Phone: ??[phone] Authorizing ProviderResult TypeResult StatusEsther Ravindra Mcmahon MDSEND OUTSFinal ResultPerforming OrganizationAddressCity/State/ZIP CodePhone Number [facility] ([facility]) [address] [place] [address] * ASPERGILLUS FUMAGATUS IGG (07/11/2025 12:09 PM CDT)ComponentValueRef RangeTest MethodAnalysis TimePerformed AtPathologist SignatureASPERGILLUS FUMIGATUS, IGG AB, SERUM6.5<=102 mg/L1 7:35 PM CDTQUEST DIAGNOSTICSComment: ADDITIONAL INFORMATION This test was developed and its performance characteristics determined by [facility] in a manner consistent with CLIA requirements. This test has not been cleared or approved by the U.S. Food and Drug Administration. Specimen (Source)Anatomical Location / LateralityCollection Method / Volume Collection TimeReceived TimeBloodBLOOD SPECIMEN / UnknownQuest Collect / Unknown 07/11/2025 12:09 PM CDT1 12:09 PM CDT Narrative Authorizing ProviderResult TypeResult StatusEsther Ravindra Mcmahon MDSEND OUTSFinal ResultPerforming OrganizationAddressCity/State/ZIP CodePhone Number [employer] [facility] [address] [place] [address], * (ABNORMAL) CBC WITH AUTO DIFFERENTIAL (07/11/2025 12:09 PM CDT) Only the most recent of2 resultswithin the time period is included. ComponentValueRef RangeTest MethodAnalysis TimePerformed AtPathologist Signature WHITE BLOOD CELL COUNT12.1(H)3.8 - 10.8 Thousand/uL07/11/2025 2:25 PM [facility]TALL[facility] CLINICRED BLOOD CELL COUNT5.11(H)3.80 - 5.10 Million/uL 07/11/2025 2:25 PM [facility] MGBBQHBRCTVSOERH40.011.7 - 15.5 g/dL07/11/2025 2:25 PM [facility] PDCOBNHNCPWUZPZA62.0(H)35.0 - 45.0 %07/11/2025 2:25 PM [facility] JAYMUATCD78.080.0 - 100.0 fL07/11/2025 2:25 PM [facility] IIVSANOKZ82.427.0 - 33.0 pg07/11/2025 2:25 PM [facility] VRTYHICAJC89.9(L)32.0 - 36.0 g/dL07/11/2025 2:25 PM T[facility] CLINICComment: For adults, a slight decrease in the calculated MCHC value (in the range of 30 to 32 g/dL) is most likely not clinically significant; however, it should be interpreted with caution in correlation with other red cell parameters and the patient's clinical condition. RDW14.711.0 - 15.0 %07/11/2025 2:25 PM [facility]TALL[facility] PLATELET WHBFK075978 - 400 Thousand/uL07/11/2025 2:25 PM CDTALL[facility] CLINICMPV9.57.5 - 12.5 fL07/11/2025 2:25 PM [facility] QQUIHMYULVXRREDHS48.2%07/11/2025 2:25 PM [facility] LYMPHOCYTES6.7%07/11/2025 2:25 PM [facility] CLINICMONOCYTES 5.4%07/11/2025 2:25 PM [facility] CLINICEOSINOPHILS0.4% 07/11/2025 2:25 PM [facility] CLINICBASOPHILS0.3%07/11/2025 2:25 PM [facility] CL[facility]ICABSOLUTE PCOFWEVSJHM65035(H)1500 - 7800 cells/uL07/11/2025 2:25 PM [facility] ZPLFDODXDKG578(L)850 - 3900 cells/uL07/11/2025 2:25 PM [facility] YSMDSKJQD290452 - 950 cells/uL07/11/2025 2:25 PM [facility] SRQXWEGDGRY7928 - 500 cells/uL07/11/2025 2:25 PM [facility] DCEJJAFAC699 - 200 cells/uL 07/11/2025 2:25 PM [facility] CLINICSpecimen (Source) Anatomical Location / LateralityCollection Method / VolumeCollection Time Received TimeBloodBLOOD SPECIMEN / UnknownQuest Collect / Fipreku4307/11/2025 12:09 PM CDT1 12:09 PM CDT Narrative Authorizing ProviderResult TypeResult StatusEsther Ravindra Mcmahon MD HEMATOLOGYFinal ResultPerforming OrganizationAddressCity/State/ZIP CodePhone Number [facility] [address] [place] [address], [place] [phone] [facility] [address] [place] [address], * ASPERGILLUS FUMIGATUS IGE (07/11/2025 12:09 PM CDT)ComponentValueRef RangeTest MethodAnalysis TimePerformed AtPathologist SignatureASPERGILLUS FUMIGATUS (M3) IGE<0.10kU/L1 6:08 PM CDTQUEST DIAGNOSTICSASPERGILLUS FUMIGATUS (M3) IGE TPVKR962 6:08 PM CDTQUEST DIAGNOSTICSINTERPRETATIONSEE NOTE 07/12/2025 6:08 PM CDTQUEST DIAGNOSTICSComment: Specific ?Level of Allergen IGE Class ?kU/L ? Specific IGE Antibody ----- ? --------- ? 0 <0.10 Absent/Undetectable ??0/1 ?0.10-0.34 ? Very Low Level ??1 ?0.35-0.69 ? Low Level ??2 ?0.70-3.49 ? Moderate Level ??3 ?3.50-17.4 ? High Level ??4 ?17.5-49.9 ? Very High Level ??5 ?50-100 ?Very High Level 6 >100 Very High Level The clinical relevance of allergen results of 0.10-0.34 kU/L are undetermined and intended for specialist use. Allergens denoted with a include results using one or more analyte specific reagents. In those cases, the test was developed and its analytical performance characteristics have been determined by [employer] It has not been cleared or approved by the U.S. Food and Drug Administration. This assay has been validated pursuant to the CLIA regulations and is used for clinical purposes. Specimen (Source)Anatomical Location / LateralityCollection Method / Volume Collection TimeReceived TimeBloodBLOOD SPECIMEN / UnknownQuest Collect / Unknown 07/11/2025 12:09 PM CDT1 12:09 PM CDT Narrative Authorizing ProviderResult TypeResult StatusEsther Ravindra SALASEND OUTSFinal ResultPerforming OrganizationAddressCity/State/ZIP CodePhone Number [employer] [facility] [address] [place] [address], [place] [phone] * IMMUNOGLOBULIN E,IGE (07/11/2025 12:09 PM CDT)ComponentValueRef RangeTest MethodAnalysis TimePerformed AtPathologist SignatureIMMUNOGLOBULIN E11<GE=888 kU/L1 6:08 PM CDTQUEST DIAGNOSTICSSpecimen (Source)Anatomical Location / LateralityCollection Method / VolumeCollection TimeReceived Time BloodBLOOD SPECIMEN / UnknownQuest Collect / Ttmggul9507/11/2025 12:09 PM CDT 07/11/2025 12:09 PM CDT Narrative Authorizing ProviderResult TypeResult StatusEsther Ravindra Mcmahon MD CHEMISTRYFinal ResultPerforming OrganizationAddressCity/State/ZIP CodePhone Number [employer] [place] [id number] [place] [address], [place] [phone] * AFB CULTURE, STAIN (07/11/2025 9:30 AM CDT)ComponentValueRef RangeTest Method Analysis TimePerformed AtPathologist SignatureCULTURENo Mycobacterium isolated.08/24/2025 7:18 AM [facility]STGRE[facility]ITALCENTRAL LABORATORYACID FAST STAINNo acid fast bacilli seen08/24/2025 7:18 AM [facility]STGRE[facility]CENTRAL LABORATORYSpecimen (Source)Anatomical Location / Laterality Collection Method / VolumeCollection TimeReceived TimeOtherSPUTUM SPECIMEN / UnknownNon-Blood / Tjwecha1807/11/2025 9:30 AM CDT1 1:04 PM CDT Narrative Authorizing ProviderResult TypeResult StatusEsther Ravindra Mcmahon MD MICROBIOLOGYFinal ResultPerforming OrganizationAddressCity/State/ZIP CodePhone Number [facility] [address] [place] [address], [place] * (ABNORMAL) SPUTUM CULTURE, STAIN (07/11/2025 9:30 AM CDT)ComponentValueRef RangeTest MethodAnalysis TimePerformed AtPathologist SignatureCULTURERESULT(A) 07/14/2025 9:48 AM [facility]-CENTRAL LABORATORYCULTURE4+ Pseudomonas xwscurplhn54/31/2025 9:48 AM [facility]-CENTRAL LABORATORYCULTURE4+ Usual Flora07/14/2025 9:48 AM [facility] CENTRAL LABORATORYGRAM STAIN1+ PMNs07/14/2025 9:48 AM [facility]ENTRAL LABORATORYGRAM STAINNo RBCs07/14/2025 9:48 AM [facility]-CENTRAL LABORATORYGRAM STAINNo Epithelial cells07/14/2025 9:48 AM [facility] UNITCENTRAL LABORATORYGRAM STAIN2+ Gram Negative Awzyria7307/14/2025 9:48 AM [facility] UNITCENTRAL LABORATORYGRAM STAIN1+ Gram Positive Cocci1 9:48 AM [facility] UNITCENTRAL LABORATORYGRAM STAIN1+ Gram Positive Dgagilo3407/14/2025 9:48 AM [facility] UNITCENTRAL LABORATORYSpecimen (Source)Anatomical Location / LateralityCollection Method / VolumeCollection TimeReceived Time OtherSPUTUM SPECIMEN / UnknownNon-Blood / Wwfyfju0107/11/2025 9:30 AM CDT 07/11/2025 1:04 PM CDT Narrative OrganismAntibioticMethodSusceptibilityPseudomonas aeruginosaCEFTAZIDIME 2: S Pseudomonas aeruginosaLEVOFLOXACIN <=0.12: S Pseudomonas aeruginosaCIPROFLOXACIN <=0.06: S Pseudomonas aeruginosaPIPERACILLIN/TAZO <=4: S Pseudomonas aeruginosaCEFEPIME 0.5: S Pseudomonas aeruginosaMEROPENEM <=0.25: S Authorizing ProviderResult TypeResult StatusEsther Ravindra Mcmahon MD MICROBIOLOGYFinal ResultPerforming OrganizationAddressCity/State/ZIP CodePhone Number [facility]-CENTRAL [facility]ATORY [address] [address], * FUNGUS CULT, OTHER SOURCE (07/11/2025 9:30 AM CDT)ComponentValueRef RangeTest MethodAnalysis TimePerformed AtPathologist SignatureCULTURENo Fungus isolated. 08/11/2025 9:11 AM [facility]-CENTRAL LABORATORYSpecimen (Source)Anatomical Location / LateralityCollection Method / VolumeCollection TimeReceived TimeOtherSPUTUM SPECIMEN / UnknownNon-Blood / Ohjfnbs0507/11/2025 9:30 AM CDT1 1:04 PM CDT Narrative Authorizing ProviderResult TypeResult StatusEsther Ravindra Mcmahon MD MICROBIOLOGYFinal ResultPerforming OrganizationAddressCity/State/ZIP CodePhone Number [facility] [address] [address], * TROPONIN T (HS) ONE TIME (06/25/2025 5:18 PM CDT)ComponentValueRef RangeTest MethodAnalysis TimePerformed AtPathologist SignatureTROPONIN T HS66-10 ng/L ng/L1 5:50 PM CDTOHENDRICKS COMMUNITY [facility]OSPITAL HOSPITALSpecimen (Source)Anatomical Location / LateralityCollection Method / VolumeCollection TimeReceived Time BloodBLOOD SPECIMEN / UnknownButterfly / Svxdutn0206/25/2025 5:18 PM CDT 06/25/2025 5:30 PM CDT Narrative Authorizing ProviderResult TypeResult StatusMekyrie Agarwal DOCHEMISTRY Final ResultPerforming OrganizationAddressCity/State/ZIP CodePhone Number [facility] [address] [address] * XR CHEST 2 VIEWS PA AND LATERAL (06/25/2025 4:08 PM CDT)Anatomical Region LateralityModalityCHEST, THORAX, Lung, HEARTDigital RadiographySpecimen (Source)Anatomical Location / LateralityCollection Method / VolumeCollection TimeReceived Time Narrative Authorizing ProviderResult TypeResult StatusRossi Agarwal DOGENERAL IMAGINGFinal Result * TROPONIN T (HS) ACUTE W/2HR REFLEX (06/25/2025 3:21 PM CDT)ComponentValueRef RangeTest MethodAnalysis TimePerformed AtPathologist SignatureTROPONIN T HS66- 10 ng/L ng/L1 4:05 PM CDTOHENDRICKS COMMUNITY HOSPITAL HOSPITALSpecimen (Source)Anatomical Location / LateralityCollection Method / VolumeCollection TimeReceived Time BloodBLOOD SPECIMEN / UnknownButterfly / Rdfwwab2106/25/2025 3:21 PM CDT 06/25/2025 3:[address] [facility] - 06/25/2025 4:05 PM CDT hs-cTnT (Elecsys Troponin T Gen 5) concentration (s) above the sex-specific 99th percentile (16 ng/L or greater for males or 11 ng/L or greater for females) are indicative of myocardial injury. If initial hs-cTnT <=100 ng/L at presentation, a 0h/2h ABSOLUTE (ng/L) delta change (rising or falling) of >=10 ng/L suggests a significant change, whereas a 0h/2h delta change <=3 ng/L suggests no significant change. If initial hs-cTnT >100 ng/L at presentation, a 0h/2h/ RELATIVE (percent, %) delta change of 20%is suggested to distinguish patients with acute vs. chronic myocardial injury. There are multiple etiologies that can cause hs-cTnT increases above the 99th percentile (myocardial injury) other than acute myocardial infarction. Clinical context and careful clinical evaluation are critical for diagnosis and risk- stratification. The diagnosis of acute myocardial infarction requires a rising and/or falling pattern in hs-cTnT concentrations with at least one value above the sex-specific 99th percentile PLUS at least one of the following clinical criteria: ischemic symptoms, new or presumed new significant ST-T wave changes or new LBBB, development of pathological Q waves, imaging evidence of new loss of viable myocardium or new regional wall motion abnormality, or identification of intracoronary atherothrombosis or an acute angiographic culprit on coronary angiography. In appropriate low-risk patients with a non-ischemic electrocardiogram without active chest pain with a symptom onset >3-hours without recurrence, a single initial hs-cTnT<6 ng/L identifies patient with a very low risk in emergency department patient population. Authorizing ProviderResult TypeResult StatusMekyrie Agarwal DOCHEMISTRY Final ResultPerforming OrganizationAddressCity/State/ZIP CodePhone Number [facility] [address] [address] * LACTATE VENOUS (06/25/2025 3:21 PM CDT)ComponentValueRef RangeTest Method Analysis TimePerformed AtPathologist SignatureLACTATE,VENOUS1.90.5 - 2.0 mmol/L1 3:[address] [facility] (Source)Anatomical Location / LateralityCollection Method / VolumeCollection TimeReceived Time BloodBLOOD SPECIMEN / UnknownButterfly / Jhnpqny6506/25/2025 3:21 PM CDT 06/25/2025 3:28 PM CDT Narrative Authorizing ProviderResult TypeResult [facility] DOCHEMISTRY Final ResultPerforming OrganizationAddressCity/State/ZIP CodePhone Number [address] [address] * D-DIMER,QUANTITATIVE (06/25/2025 3:21 PM CDT)ComponentValueRef RangeTest MethodAnalysis TimePerformed AtPathologist SignatureD-DIMER,QUANTITATIVE0.60 See comment FEU mcg/mL06/25/2025 3:[address] [facility] (Source) Anatomical Location / LateralityCollection Method / VolumeCollection Time Received TimeBloodBLOOD SPECIMEN / UnknownButterfly / Dhgdelv9806/25/2025 3:21 PM CDT1 3:[address] [facility] - 06/25/2025 3:50 PM CDT The cut off value for exclusion of Deep Vein Thrombosis and / or Pulmonary Embolism is 0.50 FEU mcg/mL For patients greater than 50 years of age the upper limit is age dependent and was calculated with the formula: ?? (PATIENT AGE x 0.01) FEU mcg/mL = Upper limit of normal range Authorizing ProviderResult TypeResult [facility] DO HEMATOLOGYFinal ResultPerforming OrganizationAddress[facility]/ZIP CodePhone Number [address] [address] * (ABNORMAL) PRO-BNP (06/25/2025 3:21 PM CDT)ComponentValueRef RangeTest Method Analysis TimePerformed AtPathologist SignaturePRO-WVB373(H)<125 pg/mL 06/25/2025 4:06 PM CDTOWATONNA HOSPITALSpecimen (Source)Anatomical Location / LateralityCollection Method / VolumeCollection TimeReceived TimeBloodBLOOD SPECIMEN / UnknownButterfly / Xfkmrea4206/25/2025 3:21 PM CDT1 3:[address] [facility] - 06/25/2025 4:06 PM CDT The following cut-points have been suggested for the use of proBNP for the diagnostic evaluation of heart failure (HF) in patient with acute dyspnea. Patients with eGFR >= 60 Diagnosis (rule in CHF) ? <50 Years Old 450 pg/mL 50 - 75 Years Old ?900 pg/mL >75 Years Old 1800 pg/mL Exclusion (rule out CHF) Age Independent ?300 pg/mL A cutoff of 1200 pg/mL for patients with an eGFR <60 yields a diagnostic sensitivity of 89% and specificity of 72% for acute congestive heart failure. ? Authorizing ProviderResult TypeResult StatusMegan Lindy Agarwal [facility] Final ResultPerforming OrganizationAddressCity/State/[facility] CodePhone Number [facility] [address] [address] * EKG 12 LEAD (06/25/2025 2:56 PM CDT)ComponentValueRef RangeTest MethodAnalysis TimePerformed AtPathologist SignatureInterpretationSinus tachycardia Cannot rule out Anterior infarct , age undetermined Abnormal ECG When compared with ECG of 06-Jun-2022 08:01, Sinus rhythm has replaced Junctional rhythm Non-specific change in ST segment in Inferior leads Nonspecific T wave abnormality now evident in Anterior leads [facility] NOWVentricular Pprh542RUVEILKFZ NOWAtrial Bzos854JNAENWGVB NOWP-R Zmzcwugb642ljSHOCLF NOWQRS Jwuzbsbd94qxGALMLO PENMH350ikUNMGHV VBBKGy503dwRMLJAE NOWP Ukbu80zjxsjnfMNNSZX NOWR Bghh31obpndofBNTNYM NOWT Ipzb07gbdcfnlGTVRRS NOW Specimen (Source)Anatomical Location / LateralityCollection Method / Volume Collection TimeReceived Time06/25/2025 2:56 PM CDT1 8:59 AM CDT Narrative Authorizing ProviderResult TypeResult StatusRossi Agarwal DOEKG ORD Final ResultPerforming OrganizationAddressCity/State/ZIP CodePhone Number [facility] [place], [place] * COVID-19 MOLECULAR (06/25/2025 2:48 PM CDT)ComponentValueRef RangeTest Method Analysis TimePerformed AtPathologist SignatureCOVID 19 [place] MOLECULARNot detectedNot giseuxtp42/12/2025 3:25 PM [facility] Jkmnjbvmnz91/12/2025 3:25 PM [facility] HOSPITALComment: Specimen submitted to [facility] for testing.Specimen (Source) Anatomical Location / LateralityCollection Method / VolumeCollection Time Received TimeOtherSPECIMEN FROM NASOPHARYNGEAL STRUCTURE / UnknownNon-Blood / Cltvhyl3206/25/2025 2:48 PM CDT1 3:04 PM CDT Narrative Authorizing ProviderResult TypeResult StatusRossi Agarwal DO MICROBIOLOGYFinal ResultPerforming OrganizationAddressCity/State/ZIP CodePhone Number [place] [phone] [address] * INFLUENZA A/B PCR (06/25/2025 2:48 PM CDT)ComponentValueRef RangeTest Method Analysis TimePerformed AtPathologist SignatureINFLUENZA A PCRNOT Detected 06/25/2025 3:25 PM [facility] HOSPITALINFLUENZA B PCRNOT Dghnwpsc57/12/2025 3:25 PM [facility] HOSPITALSpecimen (Source)Anatomical Location / Laterality Collection Method / VolumeCollection TimeReceived TimeOtherSPECIMEN FROM NASOPHARYNGEAL STRUCTURE / UnknownNon-Blood / Llhilmm2806/25/2025 2:48 PM CDT 06/25/2025 3:04 PM CDT Narrative Authorizing ProviderResult TypeResult StatusMegan Lindy Agarwal DO MICROBIOLOGYFinal ResultPerforming OrganizationAddressCity/State/ZIP CodePhone Number [facility] [address] [address] * LIPID PANEL W REFLEX MEASURED LDL (02/15/2024 11:51 AM CDT)ComponentValueRef RangeTest MethodAnalysis TimePerformed AtPathologist Signature CHOLESTEROL,[id number] - 199 mg/dL02/15/2024 12:54 PM [facility]ATORYComment: Cholesterol, Total Reference Ranges Desirable <200 mg/dL Borderline 200-239 mg/dL High >=240 mg/dL JUBOUKPPCMEDC68<150 mg/dL02/15/2024 12:54 PM [facility] LABORATORYHDL XJWTSGNEQQH29>40 mg/dL02/15/2024 12:54 PM [facility] LABORATORYNON-HDL EAHFLUTIUAS452<145 mg/dl02/15/2024 12:54 PM CDT [facility]ATORYCHOL/HDL RATIO2.68<4.50002/15/2024 12:54 PM [facility] LABORATORYLDL NFTBLOPKGLD68<=130 mg/dL02/15/2024 12:54 PM [facility] LABORATORYVLDL UVMOIJMDUDK51<=30 mg/dL 02/15/2024 12:54 PM [facility] LABORATORYPROVIDER ORDERED JYGDOPNCXTOS34/03/2024 12:54 PM [facility] LABORATORYSpecimen (Source)Anatomical Location / LateralityCollection Method / VolumeCollection TimeReceived TimeBloodBLOOD SPECIMEN / UnknownButterfly / Tmgtcwe7102/15/2024 11:51 AM CDT02/15/2024 11:51 AM CDT Narrative Authorizing ProviderResult TypeResult StatusTerence Emeka Edge MDCHEMISTRY Final ResultPerforming OrganizationAddressCity/State/ZIP CodePhone Number [facility] [address] [place], [place] [id number] * ANTI HCV (02/15/2024 11:51 AM CDT)ComponentValueRef RangeTest MethodAnalysis TimePerformed AtPathologist SignatureHEPATITIS C ANTIBODYNon-Reactive Non-Xervkrcw52/04/2024 7:09 AM CDT[facility] Comment:Please note, per www.CDC.gov: If a patient is known to be at high risk of HCV infection, or is symptomatic, and the physician's suspicion of HCV infection is high, HCV RNA testing is often employed and is of diagnostic value, even after an initial negative anti-HCV test result.Specimen (Source) Anatomical Location / LateralityCollection Method / VolumeCollection Time Received TimeBloodBLOOD SPECIMEN / UnknownButterfly / Ziaeczm4102/15/2024 11:51 AM CDT02/15/2024 11:51 AM CDT Narrative Authorizing ProviderResult TypeResult StatusTerence Emeka Edge MDSEND OUTS Final ResultPerforming OrganizationAddressCity/State/ZIP CodePhone Number [facility] [address] [address], * XR MAMMO BILAT SCREENING (08/27/2017 1:40 PM COSMETIC ACCOUNT COORDINATOR)Anatomical RegionLaterality ModalityBREASTS, Breast Left, Breast RightBilateralMammographySpecimen (Source)Anatomical Location / LateralityCollection Method / VolumeCollection TimeReceived Time Impressions 08/28/2017 9:08 AM COSMETIC ACCOUNT COORDINATOR There is no radiographic evidence for malignancy. Recommend annual mammograms. A lay language report of this examination will be provided to the patient. MAMMOGRAM ASSESSMENT: ??ACR 2 Benign Narrative 08/28/2017 9:08 AM COSMETIC ACCOUNT COORDINATOR XR MAMMO BILAT SCREENING [[id number]] CLINICAL HISTORY: ??This is an asymptomatic 57 y.o. patient. INDICATION FOR EXAM: Mammogram Screening. TECHNIQUE: CC & MLO views were obtained. This digital study was evaluated with the assistance of Computer-Aided Detection. COMPARISON FILMS: Yes 02/06/15 [facility] DIAGNOSTIC IMAGING FINDINGS: ??Mammographically, the breast tissue has scattered fibroglandular densities. ??No suspicious masses or microcalcifications. ?? Benign appearing calcifications within both breasts and Intramammary lymph node within left breast. Biopsy clip right breast. Authorizing ProviderResult TypeResult StatusTerence Emeka Edge MDMAMMOFinal Result from Last 3 Months or Most Recently Relevant to [place] [address] * Guarantor: Jackeline Morfin TypeRelation to PatientDate of PhoneBilling AddressPersonal/YntlenNwbk[address] [address] [place] [address] * Guarantor: Jackeline Morfin TypeRelation to PatientDate of PhoneBilling AddressPersonal/AhhwfnPdxi1960 [address] [address] Advance Directives * Full Code (Latest Code Status on File) Date ActivatedDate InactivatedComments12/13/2016 4:45 PM12/16/2016 4:29 PMQuestion AnswerCommentsCode Status Discussion:* Discussed * DNR Date ActivatedDate InactivatedComments12/12/2016 5:02 PM12/13/2016 4:45 PMQuestion AnswerCommentsCode Status Discussion:* Discussed Care Teams Team MemberRelationshipSpecialtyStart DateEnd Date Mars [place] PA [address] [place] [address] [place] [address] PCP - GeneralPhysician Assistant06/08/25 Rachel Tanner MD Pulmonary Medicine01/26/[address] [address] 01/19/25
== END 2025-09-05 16:32 | disposition home or self-care (01) ==
LOC: ED 16:17
PROVIDERS: Emergency Provider Emergency Medicine Emergency Medical Services
DX: J44.9 Chronic obstructive pulmonary disease, unspecified (principal); Z87.891 Personal history of nicotine dependence
CPT/HCPCS: 36600; 82803; 94640; 94761; 99284